=== PATIENT | female | born 1940 | race Caucasian/White ===

== ENCOUNTER 2016-09-03 13:00 | Outpatient (RCR) | payer MEDICARE, OTHER ==
--- OUTSIDE RECORDS SUMMARY | 2016-06-15 12:53 | XMS REPORT | Continuity of Care Document ---
Author Author [facility] Organization [facility] Address Unknown Phone Unavailable Care Team Providers Care Print Controller Name Role Phone DANITA PALOMO MD PCP Insurance Providers Payer Name Policy Number Subscriber Name Relationship Wps Medicare [id number] Jennifer Jackson 19 Self / Same As Patient [employer] [id number] Jennifer Jackson 19 Self / Same As Patient Advance Directives Directive Response Recorded Date/Time Advance Directives Yes 08/29/07 3:49am Health Care Power of Quick Mixer Operator Salina JACKSON 08/29/07 3:49am Organ Donor Yes 08/29/07 3:49am Chief Complaint and Reason for Visit Chief Complaint Cough/Cold/Flu Symptoms Reason for Visit [id number] Problems Active Problems Medical Problem Onset Date Status COPD (chronic obstructive pulmonary disease) with acute bronchitis Unknown Acute Medications Current Home Medications Medication Dose Units Route Directions Days/Qty Instructions Start Date Metoprolol Succinate 100 Mg 08/29/07 Hydrochlorothiazide 12.5 Mg 08/29/07 Zafirlukast 20 Mg 08/29/07 Multivitamins 1 Ea 08/29/07 Salmeterol Xinafoate/Fluticasone 100 Mcg/50 Mcg 08/29/07 Albuterol/Ipratropium 14.7 Gm 08/29/07 Potassium Chloride 8 Meq 08/29/07 [Estratest] 08/29/07 [Magnesium] 08/29/07 [Luten] 08/29/07 [Aleve] 08/29/07 Methylprednisolone 4 Mg 4 Mg Oral As Directed 1 04/19/16 Doxycycline Monohydrate 100 Mg 100 Mg Oral Twice A Day 20 04/19/16 Social History Social History Problem Response Recorded Date/Time Recent Foreign Travel No 04/19/2016 5:17pm Recent Infectious Disease Exposure No 04/19/2016 5:17pm Hospitalization with Isolation Denies 04/19/2016 5:17pm Hospital Discharge Instructions No hospital discharge instructions. Plan of Care Discharge Date 04/19/16 6:44pm Disposition 01 HOME, SELF-CARE Condition at Discharge Stable Instructions/Education Provided Acute Bronchitis (ED) Prescriptions See Medication Section Referrals DANITA PALOMO MD - Primary Care Physician LORENZO CUNNINGHAM - Primary Care Physician ADAMARIS KELLER DO - Additional Instructions/Education ROBITUSSIN DM FOR COUGH LOTS OF CLEAR LIQUIDS USE YOUR COMBIVENT WITH SPACER EVERY 4 HOURS NEEDED FOR BREATHING FOLLOW UP WITH DR. PALOMO AND/OR DR. KELLER N 2-3 DAYS FOR FURTHER CARE All discharge instructions reviewed with patient and/or family. Voiced understanding. Functional Status No functional status results. Allergies, Adverse Reactions, Alerts Allergen Type Severity Reaction Status Last Updated Sulfa (Sulfonamide Antibiotics) ([id number]) Allergy Unknown Active 29/03 Aspirin Allergy Unknown Active 08/29/07 cephaeline Allergy Mild Active 04/19/16 Ampicillin Allergy Unknown Active 08/29/07 hydrogen peroxide ([id number]) Allergy Unknown Active 08/29/07 gentamicin ([id number]) Allergy Unknown Active 08/29/07 turmeric ([id number]) Allergy Mild Active 04/19/16 moxifloxacin ([id number]) Allergy Unknown Active 08/29/07 PAUD'ARCO Allergy Unknown Active 04/19/16 Immunizations No immunization records. Vital Signs Acute Vital Signs Vital Response Date/Time Temperature (Fahrenheit) 97.9 degrees F (97.6 - 99.5) 04/19/2016 5:17pm Temperature (Calculated Celsius) 36.34641 degrees C (36.4 - 37.5) 04/19/2016 5:17pm Temperature Source Temporal 04/19/2016 5:17pm Pulse Rate (adult) 63 bpm (60 - 90) 04/19/2016 5:17pm Respiratory Rate 20 bpm (12 - 24) 04/19/2016 5:17pm O2 Sat by Pulse Oximetry 96 % (88 - 100) 04/19/2016 6:12pm Blood Pressure 153/58 mm Hg 04/19/2016 5:17pm Blood Pressure Mean 89 mm Hg 04/19/2016 5:17pm Pain Numeric Pain Scale 3 04/19/2016 5:17pm Height (Feet) 5 feet 04/19/2016 5:17pm Height (Inches) 7 inches 04/19/2016 5:17pm Height (Calculated Centimeters) 170.663645 cm 04/19/2016 5:17pm Weight (Pounds) 235 pounds 04/19/2016 5:17pm Weight (Calculated Kilograms) 106.690343 kilograms 04/19/2016 5:17pm Capillary Refill Capillary Refill Less Than 3 Seconds 04/19/2016 5:17pm Height 5 ft 7 in Weight 235 lb Body Mass Index 36.8 kg/m^2 Results Laboratory Results Test Name Result Units Flags Reference Collection Date/Time Result Date/ Time Comments White Blood Count 9.2 10^3/uL 4.3-11.0 04/19/2016 5:39pm 04/19/2016 5: 51pm Red Blood Count 4.42 10^6/uL 4.35-5.85 04/19/2016 5:39pm 04/19/2016 5: 51pm Hemoglobin 13.6 G/DL 11.5-16.0 04/19/2016 5:39pm 04/19/2016 5:51pm Hematocrit 41 % 35-52 04/19/2016 5:39pm 04/19/2016 5:51pm Mean Corpuscular Volume 93 FL 80-99 04/19/2016 5:39pm 04/19/2016 5: 51pm Mean Corpuscular Hemoglobin 31 PG 25-34 04/19/2016 5:39pm 04/19/2016 5: 51pm Mean Corpuscular Hemoglobin Concent 33 G/DL 32-36 04/19/2016 5:39pm 03/2016 5:51pm Red Cell Distribution Width 13.4 % 10.0-14.5 04/19/2016 5:39pm 2015 5:51pm Platelet Count 281 10^3/uL 130-400 04/19/2016 5:39pm 04/19/2016 5:51pm Mean Platelet Volume 10.2 FL 7.4-10.4 04/19/2016 5:39pm 04/19/2016 5: 51pm Neutrophils (%) (Auto) 66 % 42-75 04/19/2016 5:39pm 04/19/2016 5:51pm Lymphocytes (%) (Auto) 18 % 12-44 04/19/2016 5:39pm 04/19/2016 5:51pm Monocytes (%) (Auto) 13 % H 0-12 04/19/2016 5:39pm 04/19/2016 5:51pm Eosinophils (%) (Auto) 2 % 0-10 04/19/2016 5:39pm 04/19/2016 5:51pm Basophils (%) (Auto) 0 % 0-10 04/19/2016 5:39pm 04/19/2016 5:51pm Neutrophils # (Auto) 6.1 X 10^3 1.8-7.8 04/19/2016 5:39pm 04/19/2016 5: 51pm Lymphocytes # (Auto) 1.7 X 10^3 1.0-4.0 04/19/2016 5:39pm 04/19/2016 5: 51pm Monocytes # (Auto) 1.2 X 10^3 H 0.0-1.0 04/19/2016 5:39pm 04/19/2016 5: 51pm Eosinophils # (Auto) 0.2 10^3/uL 0.0-0.3 04/19/2016 5:39pm 04/19/2016 5 :51pm Basophils # (Auto) 0.0 10^3/uL 0.0-0.1 04/19/2016 5:39pm 04/19/2016 5: 51pm Sodium Level 134 MMOL/L L 135-145 04/19/2016 5:39pm 04/19/2016 6:09pm Potassium Level 4.7 MMOL/L 3.6-5.0 04/19/2016 5:39pm 04/19/2016 6:09pm Chloride Level 98 MMOL/L 98-107 04/19/2016 5:39pm 04/19/2016 6:09pm Carbon Dioxide Level 27 MMOL/L 21-32 04/19/2016 5:39pm 04/19/2016 6: 09pm Anion Gap 9 MMOL/L 5-14 04/19/2016 5:39pm 04/19/2016 6:09pm Blood Urea Nitrogen 21 MG/DL H 7-18 04/19/2016 5:39pm 04/19/2016 6:09pm Creatinine 1.41 MG/DL H 0.60-1.30 04/19/2016 5:39pm 04/19/2016 6:09pm BUN/Creatinine Ratio 15 04/19/2016 5:39pm 04/19/2016 6:09pm Estimat Glomerular Filtration Rate 36 04/19/2016 5:39pm 04/19/2016 6:09pm GFR INTERPRETIVE DATA UNITS FOR ESTIMATED GFR (eGFR): mL/min/1.73 M2 REFERENCE RANGE FOR ESTIMATED GFR (eGFR) eGFR NORMAL eGFR >60 MODERATELY DECREASED eGFR 30-59 SEVERLY DECREASED eGFR 15-29 KIDNEY FAILURE <15 (OR DIALYSIS) Glucose Level 104 MG/DL 70-105 04/19/2016 5:39pm 04/19/2016 6:09pm Calcium Level 10.0 MG/DL 8.5-10.1 04/19/2016 5:39pm 04/19/2016 6:09pm Total Bilirubin 0.4 MG/DL 0.1-1.0 04/19/2016 5:39pm 04/19/2016 6:09pm Alkaline Phosphatase 50 U/L 40-136 04/19/2016 5:39pm 04/19/2016 6:09pm Aspartate Amino Transf (AST/SGOT) 21 U/L 5-34 04/19/2016 5:39pm 2015 6:09pm Alanine Aminotransferase (ALT/SGPT) 21 U/L 0-55 04/19/2016 5:39pm 04/19 6:09pm Total Protein 7.0 G/DL 6.4-8.2 04/19/2016 5:39pm 04/19/2016 6:09pm Albumin 4.3 G/DL 3.2-4.5 04/19/2016 5:39pm 04/19/2016 6:09pm Procedures No known history of procedures. Encounters Encounter Location Arrival/Admit Date Discharge/Depart Date Attending Provider Departed Emergency Room [facility] 04/19/16 4:41pm 04/19 6:44pm GEMMA SILVEIRA DO Recent Diagnosis
[~2016-09-03 13:00] MED LIST: ALEVE; ASPI-983 PO; ASPI-999 PO; CALC-706 PO; CETI10TA20 PO; CLOP75TA69 PO; CMBV14.7IN; CYCL1DRO OU; DOXY100C42 PO; ESTRATEST; ESTRATEST HS PO; FENO145T20 PO; FLUT1DIS28 IH; FURO20TA4 PO; GLIP2.5T15 PO; HCTZ12.5T; HYDR-3812 PO; KCL10CCR; LOSA50TA36 PO; LUTEN; MAGNESIUM; METH4TAB PO; MONT10TA21 PO; MTP100TCR; MULT1TAB63; MULT1TAB69 PO; NFNEB10T PO; OMEG-109 PO; PANT40TA3 PO; POTA8CAP14; POTA8TAB6 PO; SLMFT1E; SODI15DR7 OD; ZFR20T; [UNRECOGNIZED DRUG - OTHER] INH
[2016-09-07] MEDS ORDERED: PRD20T PO (11:36)
[2016-09-07] MEDS ORDERED: RT-ALBUINH IH (12:44)
== END 2016-09-13 | disposition home or self-care (01) ==
LOC: PULM 13:00
PROVIDERS: ATTEND Nurse Practitioner Family
DX: J43.9 Emphysema, unspecified (principal); R06.09 Other forms of dyspnea; R06.02 Shortness of breath
CPT/HCPCS: 99211

== ENCOUNTER → 2016-10-12 | Outpatient (CLI) | payer MEDICARE, OTHER ==
[~2016-10-12] MED LIST changes: +PRD20T PO; +RT-ALBUINH IH
--- OUTSIDE RECORDS SUMMARY | 2016-10-12 11:27 | XMS REPORT | Continuity of Care Document ---
Author Author [facility] Organization [facility] Address Unknown Phone Unavailable Care Team Providers Care Stone Engraver Name Role Phone DANITA PALOMO MD PCP Insurance Providers Payer Name Policy Number Subscriber Name Relationship Wps Medicare [id number] Jennifer Jackson 19 Self / Same As Patient [employer] [id number] Jennifer Jackson 19 Self / Same As Patient Advance Directives Directive Response Recorded Date/Time Advance Directives Yes 08/29/07 3:49am Health Care Power of Hvac Designer Salina JACKSON 08/29/07 3:49am Organ Donor Yes 08/29/07 3:49am Chief Complaint and Reason for Visit Chief Complaint Cough/Cold/Flu Symptoms Reason for Visit [id number] Problems Active Problems Medical Problem Onset Date [...] Reaction Status Last Updated Sulfa (Sulfonamide Antibiotics) ([id number]) Allergy Unknown Active 29/03 Aspirin Allergy Unknown Active 08/29/07 cephaeline Allergy Mild Active 04/19/16 Ampicillin Allergy Unknown Active 08/29/07 hydrogen peroxide (Z978889809) Allergy Unknown Active 08/29/07 gentamicin ([id number]) Allergy Unknown Active 08/29/07 turmeric (X952477582) Allergy Mild Active 04/19/16 moxifloxacin ([id number]) Allergy Unknown Active 08/29/07 PAUD'ARCO Allergy Unknown Active 04/19/16 Immunizations No immunization records. Vital Signs Acute Vital Signs Vital Response Date/Time Temperature (Fahrenheit) 97.9 degrees F (97.6 - 99.5) 04/19/2016 5:17pm Temperature (Calculated Celsius) 36.18232 degrees C (36.4 - 37.5) 04/19/2016 5:17pm [...] 7 inches 04/19/2016 5:17pm Height (Calculated Centimeters) 170.338827 cm 04/19/2016 5:17pm Weight (Pounds) 235 pounds 04/19/2016 5:17pm Weight (Calculated Kilograms) 106.298989 kilograms 04/19/2016 5:17pm Capillary Refill Capillary Refill [...] Date Attending Provider Departed Emergency Room [facility] 04/19/16 4:41pm 04/19 6:44pm GEMMA SILVEIRA DO Recent Diagnosis
--- NOTE | 2016-10-12 13:38 | Diagnostic Imaging Report ---
CHEST PA/LAT (2 VIEW) INDICATION: Shortness of breath and cough. COMPARISON: 09/07/2016 and 07/09/2010. FINDINGS: No focal pneumonic consolidation, pleural effusion or pneumothorax. Linear atelectasis within the left mid and lower lung zone is unchanged since prior examinations, compatible with scar. Increased densities overlying the anterior aspect of the lower thoracic spine on the lateral radiograph have not significantly changed since 2010 examination and are likely due to summation shadow of degenerative change and normal pulmonary vasculature. Normal heart size and pulmonary vasculature. IMPRESSION: No acute cardiopulmonary process. Dictated by: Dictated on workstation # [id number]
== END ==
LOC: RAD 11:24
PROVIDERS: ATTEND Nurse Practitioner Family
DX: R06.02 Shortness of breath (principal)
CPT/HCPCS: 71020

== ENCOUNTER 2016-11-12 13:00 | Outpatient (RCR) | payer MEDICARE, OTHER ==
--- OUTSIDE RECORDS SUMMARY | 2016-09-24 13:24 | XMS REPORT | Continuity of Care Document ---
Author Author [facility] Organization [facility] Address Unknown Phone Unavailable Care Team Providers Care Replanting Machine Crew Name Role Phone DANITA PALOMO MD PCP Insurance Providers Payer Name Policy Number Subscriber Name Relationship Wps Medicare [id number] Jennifer Jackson 19 Self / Same As Patient [employer] [id number] Jennifer Jackson 19 Self / Same As Patient Advance Directives Directive Response Recorded Date/Time Advance Directives Yes 08/29/07 3:49am Health Care Power of Analytic Programmer Salina JACKSON 08/29/07 3:49am Organ Donor Yes 08/29/07 3:49am Chief Complaint and Reason for Visit Chief Complaint Cough/Cold/Flu Symptoms Reason for Visit [id number] Problems Active Problems Medical Problem Onset Date [...] Reaction Status Last Updated Sulfa (Sulfonamide Antibiotics) ([id number]) Allergy Unknown Active 29/03 Aspirin Allergy Unknown Active 08/29/07 cephaeline Allergy Mild Active 04/19/16 Ampicillin Allergy Unknown Active 08/29/07 hydrogen peroxide ([id number]) Allergy Unknown Active 08/29/07 gentamicin ([id number]) Allergy Unknown Active 08/29/07 turmeric ([id number]) Allergy Mild Active 04/19/16 moxifloxacin ([id number]) Allergy Unknown Active 08/29/07 PAUD'ARCO Allergy Unknown Active 04/19/16 Immunizations No immunization records. Vital Signs Acute Vital Signs Vital Response Date/Time Temperature (Fahrenheit) 97.9 degrees F (97.6 - 99.5) 04/19/2016 5:17pm Temperature (Calculated Celsius) 36.52455 degrees C (36.4 - 37.5) 04/19/2016 5:17pm [...] 7 inches 04/19/2016 5:17pm Height (Calculated Centimeters) 170.432174 cm 04/19/2016 5:17pm Weight (Pounds) 235 pounds 04/19/2016 5:17pm Weight (Calculated Kilograms) 106.781168 kilograms 04/19/2016 5:17pm Capillary Refill Capillary Refill [...] Date Attending Provider Departed Emergency Room [facility] 04/19/16 4:41pm 04/19 6:44pm GEMMA SILVEIRA DO Recent Diagnosis
== END 2016-12-23 | disposition home or self-care (01) ==
LOC: PULM 13:00
PROVIDERS: ATTEND Nurse Practitioner Family
DX: J43.9 Emphysema, unspecified (principal); R06.09 Other forms of dyspnea; R06.02 Shortness of breath

== ENCOUNTER → 2017-03-18 | Outpatient (CLI) | payer MEDICARE, OTHER ==
--- NOTE | 2017-03-18 14:51 | Diagnostic Imaging Report ---
PA and lateral views of the chest. INDICATION: Shortness of breath and COPD. COMPARISON: 10/12/2016. FINDINGS: The lungs demonstrate minimal atelectasis or scarring in the mid lateral left lung. No significant focal infiltrate is seen otherwise. No effusion or pneumothorax. The heart size is borderline enlarged. IMPRESSION: Borderline cardiomegaly. Dictated by: Dictated on workstation # [id number]
== END ==
LOC: RAD 09:24
PROVIDERS: ATTEND Nurse Practitioner Family
DX: J45.909 Unspecified asthma, uncomplicated (principal); J43.8 Other emphysema; R06.02 Shortness of breath
CPT/HCPCS: 71020

== ENCOUNTER → 2017-04-13 | Outpatient (CLI) | payer MEDICARE, OTHER ==
--- NOTE | 2017-04-13 17:22 | Diagnostic Imaging Report ---
PROCEDURE: US Thyroid. TECHNIQUE: Multiple real-time grayscale images were obtained of the thyroid in various projections. INDICATION: Multinodular goiter. FINDINGS: The right thyroid lobe is 5 x 2.1 x 1.8 cm. The left lobe is 4.6 x 1.7 x 1.4 cm. In the right lobe, there are complex nodules measuring 1.4 and 1.3 cm in size. These demonstrate small cystic components. No significant internal vascularity is seen. When compared to previous exam of 03/09/2016, these nodules appear slightly larger. In the left lobe, the largest solid-appearing nodule is 0.9 cm in the lower thyroid pole. There is however no internal vascularity seen on color Doppler. IMPRESSION: There are multiple bilateral thyroid nodules with possible solid components more prominent on the right side up to 1.4 from cm in size. This is slightly increased compared to the prior exam. The findings are likely related to multinodular goiter. Dictated by: Dictated on workstation # [id number]
== END ==
LOC: RAD 13:46
PROVIDERS: ATTEND Nurse Practitioner Family
DX: E04.2 Nontoxic multinodular goiter (principal)
CPT/HCPCS: 76536

== ENCOUNTER 2017-04-23 05:36 | Outpatient (CLI) | payer MEDICARE, OTHER ==
[~2017-04-23] VITALS: Ht 167.6 cm; Wt 99.8 kg
[2017-04-23] MEDS ORDERED: FLUT1AER IH (09:56)
[2017-04-23] MEDS ORDERED: IPRA4AER IH (09:56)
[2017-04-23] MEDS ORDERED: GEMF600T3 PO (09:56)
[2017-04-23] MEDS ORDERED: ASPI-586 PO (09:56)
[2017-04-23] MEDS ORDERED: UMEC62.5 IH (09:56)
[2017-04-23] MEDS ORDERED: GUAI600T43 PO (09:56)
== END 2017-04-23 10:33 ==
LOC: PREOP 05:36
PROVIDERS: ATTEND Surgery
DX: Z01.818 Encounter for other preprocedural examination (principal); Z12.11 Encounter for screening for malignant neoplasm of colon

== ENCOUNTER 2017-05-03 09:59 | Day surgery (SDC) | payer MEDICARE, OTHER ==
[~2017-05-03] VITALS: Ht 167.6 cm; Wt 99.8 kg
[~2017-05-03 09:59] MED LIST changes: +ASPI-586 PO; +FLUT1AER IH; +GEMF600T3 PO; +GUAI600T43 PO; +IPRA4AER IH; +UMEC62.5 IH
[2017-05-03] MEDS ORDERED: NS IV 500 ML 500 ML ONE (10:10)
[2017-05-03 10:25] VITALS: BP 131/60
[2017-05-03] MEDS ORDERED: NS IV 500 ML 500 ML IV ONE (10:30)
--- NOTE | 2017-05-03 13:18 | History & Physicial ---
History of Present Illness History of Present Illness Reason for visit/HPI to undergo screening colonoscopy Date of Admission Date Seen by Provider: May 03, 2017 Time Seen by Provider: 13:17 I consulted on this patient on 05/03/17 13:17 Attending Physician Pravin Reynolds MD Admitting Physician Siri Del Castillo MD Consult Allergies and Home Medications Allergies Coded Allergies: cephaeline (Unverified Allergy, Mild, 04/19/16) turmeric (Unverified Allergy, Mild, 04/19/16) Sulfa (Sulfonamide Antibiotics) (Verified Allergy, Unknown, 08/29/07) ampicillin (Verified Allergy, Unknown, 08/29/07) aspirin (Verified Allergy, Unknown, 08/29/07) gentamicin (Verified Allergy, Unknown, 08/29/07) hydrogen peroxide (Verified Allergy, Unknown, 08/29/07) moxifloxacin (Verified Allergy, Unknown, 08/29/07) Uncoded Allergies: PAUD'ARCO (Allergy, Unknown, 04/19/16) Home Medications Albuterol/Ipratropium 4 Gm Aero, 2 PUFF IH Q4H PRN for SHORTNESS OF BREATH, ( Reported) Aspirin 81 Mg Tablet.dr, 81 MG PO DAILY, (Reported) Calcium Carbonate/Mag Oxide/Zn 1 Each Tablet, 1 TAB PO BID, (Reported) Cetirizine HCl 10 Mg Tablet, 10 MG PO HS, (Reported) Clopidogrel Bisulfate 75 Mg Tablet, 75 MG PO Q48H, (Reported) Cyclosporine 1 Each Droperette, 1 DROP OU BID, (Reported) Fluticasone/Vilanterol 1 Each Blst.w.dev, 1 EACH IH HS, (Reported) Furosemide 20 Mg Tablet, 20 MG PO DAILY PRN for leg swelling, (Reported) Gemfibrozil 600 Mg Tablet, 600 MG PO BID, (Reported) Glipizide 2.5 Mg Tab.er.24, 2.5 MG PO DAILY, (Reported) Guaifenesin 600 Mg Tab.er.12h, 600 MG PO BID, (Reported) Hydrocodone/Acetaminophen 1 Each Tablet, 0.5 TAB PO BID, (Reported) Montelukast Sodium 10 Mg Tablet, 10 MG PO DAILY, (Reported) Multivitamin 1 Each Tablet, 1 TAB PO DAILY, (Reported) Nebivolol HCl 10 Mg Tab, 10 MG PO BID, (Reported) Odonnell-3 Fatty Acids/Fish Oil 1 Each Capsule, 1,200 MG PO BID, (Reported) Pantoprazole Sodium 40 Mg Tablet.dr, 40 MG PO HS, (Reported) Potassium Chloride 8 Meq Tablet.er, 8 MEQ PO HS, (Reported) Umeclidinium [place] 62.5 Mcg Blst.w.dev, 62.5 MCG IH DAILY, (Reported) Past Pgoxhdm-Ffbvnk-Mxkkvs Hx Patient Social History Employed/Student: retired Alcohol Use: Denies Use Recreational Drug Use: No Smoking Status: Former Smoker Former Smoker, Quit: Aug 18, 2006 Type Used: Cigarettes Recent Foreign Travel: No Contact w/other who traveled: No Recent Hopitalizations: No Recent Infectious Disease Expo: No Immunizations Up To Date Date of Pneumonia Vaccine: Oct 14, 2015 Date of Influenza Vaccine: Jul 20, 2016 Seasonal Allergies Seasonal Allergies: Yes Surgeries Eye Surgery, Hysterectomy Respiratory Currently Using CPAP: Yes Cardiovascular Hypertension Neurological Neuropathy Reproductive System Hx Reproductive Disorders: No 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 History: Hysterectomy Gastrointestinal Gastroesophageal Reflux Musculoskeletal Arthritis, Chronic Back Pain Constitutional: no symptoms reported EENTM: no symptoms reported Respiratory: no symptoms reported Cardiovascular: no symptoms reported Gastrointestinal: no symptoms reported Genitourinary: no symptoms reported Skin: no symptoms reported Psychiatric/Neurological: No Symptoms Reported Physical Exam Vital Signs Vital Sign - Last 12Hours 05/03/17 10:25 Temp 98.4 Pulse 56 Resp 18 B/P (MAP) 131/60 Pulse Ox 94 O2 Delivery Room Air Capillary Refill : General Appearance: No Apparent Distress HEENT: Normal ENT Inspection Neck: Normal Inspection Respiratory: Lungs Clear Cardiovascular: Regular Rate, Rhythm Gastrointestinal: Normal Bowel Sounds Rectal: Deferred Back: Normal Inspection Extremity: Normal Inspection Neurologic/Psychiatric: Alert, Oriented x3 Skin: Warm/Dry Assessment/Plan Assessment and Plan lady here to undergo screening colonoscopy. Discussed in detail. Problems: PRAVIN REYNOLDS MD May 03, 2017 1:18 pm
--- NOTE | 2017-05-03 13:18 | Conscious Sedation/ASA ---
Conscious Sedation Pre-Proced Time Reviewed: 13:18 ASA Class: 2 Airway Mallampati Classification: (solomon appropriate class) I. II. III, IV Lungs Heart ASA score ASA 1: a normal healthy patient ASA 2: a patient with a mild systemic disease (mid diabetes, controlled hypertension, obesity ASA 3: a patient with a severe systemic disease that limits activity (angina , COPD, prior Myocardial infarction) ASA 4: a patient with an incapacitating disease that is a constant threat to life (CHF, renal failure) ASA 5: a moribund patient not expected to survive 24 hrs. (ruptured aneurysm) ASA 6: a declared brain patient whose organs are being harvested. For emergent operations, add the letter E after the classification Grade 1 Sedation Plan: Discussed options with patient/fam Note The patient is an appropriate candidate to undergo the planned procedure, sedation, and anesthesia. The patient immediately re-assessed prior to indication. PRAVIN HERMAN MD May 03, 2017 1:18 pm
[2017-05-03] MEDS ORDERED: MIDAZOLAM 2 MG/2 ML (VERSED) VIAL ONE (14:10)
[2017-05-03] MEDS ORDERED: fentaNYL INJECTION 100 MCG/2 ML AMP ONE ×2 (14:10)
[2017-05-03] MEDS: fentaNYL INJECTION 100 MCG/2 ML AMP IVP PRN ×3 (14:15→14:27)
[2017-05-03] MEDS: MIDAZOLAM 2 MG/2 ML (VERSED) VIAL IVP PRN ×2 (14:22→14:25)
--- NOTE | 2017-05-03 14:38 | Endo Procedure Record ---
Endo Procedure Report Date of Procedure May 03, 2017 Surgeon (s) PRAVIN HERMAN MD Post Procedure/Op Diagnosis normal colonoscopy Procedure Performed colonoscopy to cecum Description of Procedure Anesthesia Type: Conscious Sedation Specimen(s) collected/removed none Description of the Procedure indication for procedure: This lady came in for colonoscopy. She denied any family history of colon cancer. Informed consent was obtained after reviewing the procedure in detail. Description of procedure: She was placed in left lateral this position and her vital signs were monitored. Conscious sedation was achieved using Versed and fentanyl. Digital rectal examination was unremarkable. The colonoscope was then introduced in the rectum and advanced all the way up to cecum. The quality of bowel preparation was excellent. The scope was gently withdrawn slowly and the mucosa examined in a systematic fashion. There was no abnormality She tolerated the procedure well and was taken back to the nursing area in a stable condition. Impression normal screening colonoscopy. No relevant family history. Recommend repeating in 10 years. Copies To: DANITA PALOMO MD, XAVIER M MD May 03, 2017 2:38 pm
--- NOTE | 2017-05-03 14:40 | Discharge Inst-Simple/Standard ---
Discharge Inst-Standard Discharge Medications New, Converted or Re-Newed RX: Other Patient Instructions/Follow Up Plan of Care/Instructions/FU: repeat colonoscopy in 10 years. Follow-up with my office on at 930, to discuss thyroid nodules Activity as Tolerated: Yes Discharge Diet: No Restrictions PRAVIN HERMAN MD May 03, 2017 2:40 pm
[2017-05-03 15:00] VITALS: BP 145/51
[2017-05-03 15:30] VITALS: BP 169/73
[2017-05-03 15:50] VITALS: BP 169/73
== END 2017-05-03 15:50 | disposition home or self-care (01) ==
LOC: ENDO 09:59
PROVIDERS: ATTEND Surgery
DX: Z12.11 Encounter for screening for malignant neoplasm of colon (principal); I10 Essential (primary) hypertension; Z87.891 Personal history of nicotine dependence; Z79.899 Other long term (current) drug therapy

== ENCOUNTER → 2017-05-12 | Outpatient (CLI) | payer MEDICARE, OTHER ==
--- NOTE | 2017-05-12 22:15 | Diagnostic Imaging Report ---
EXAMINATION: CT chest for lung cancer screening INDICATION: Lung cancer screening, 84-[id number]-dmuj smoking history Routine imaging of the thorax using the low-dose CT chest lung cancer screening protocol was utilized. There are no prior CT chest examinations available for comparison. The plain film examination of the chest performed on 03/18/17 showed no sign of an acute abnormality. There is a 4.6 CM noncalcified nodule in the right lung base periphery (image [id number]). There is also a 3.5 MM nodule in the periphery of the right upper lobe (image 48 of 238). In the periphery of the left upper lung, there is a 4.4 MM noncalcified nodule (image 106 of 238). There is another nodule measuring 4.4 MM in the left lung base (image 176 of 238). There are no other parenchymal nodules identified. There is a small 5 MM calcified granuloma in the left upper lung. There are coarse interstitial densities in both lower lobes. These are felt to be secondary to scar formation and/or chronic atelectasis. There is no sign of failure, pneumonia or pleural effusion to suggest an acute abnormality. The heart is borderline enlarged and there are coronary artery calcifications evident. The aorta is not abnormally dilated. There is no obvious mediastinal or hilar adenopathy. The thyroid gland is generally unremarkable. There is no obvious breast mass visualized. According to our records the patient has not had a mammogram within the last year. If the patient has had a mammogram elsewhere within the last year, then no additional imaging would be recommended. If the patient has not had a recent mammogram, then mammography would be recommended. The bone windows show no sign of a fracture or of a destructive lesion. The sections through the upper abdomen failed to show any evidence for an acute abnormality. IMPRESSION: 1. There are small nodules in both lungs. These nodules do not have an aggressive appearance but I would recommend that the patient have a followup low dose CT chest for cancer screening study in one year for continued evaluation. 2. There are chronic pulmonary changes evident but there is no sign of an acute cardiopulmonary abnormality. 3. There is borderline cardiomegaly and coronary artery disease. 4. There is no obvious breast mass. Recommendations as above. Lung RADS Category 1 Dictated by: Dictated on workstation # [id number]
== END ==
LOC: RAD 12:18
PROVIDERS: ATTEND Internal Medicine Critical Care Medicine
DX: R91.8 Other nonspecific abnormal finding of lung field (principal); I25.10 Atherosclerotic heart disease of native coronary artery without angina pectoris; Z87.891 Personal history of nicotine dependence

== ENCOUNTER → 2017-05-25 | Outpatient (CLI) | payer MEDICARE, OTHER ==
[~2017-05-25] VITALS: Ht 167.6 cm; Wt 99.8 kg
[~2017-05-25] MED LIST changes: +LIDOCAINE 1% INJ 20 ML (XYLOCAINE) VIAL INJ ONE
[2017-05-25 12:58] VITALS: BP 132/80
[2017-05-25 13:33] VITALS: BP 128/78
--- NOTE | 2017-05-25 14:05 | Diagnostic Imaging Report ---
EXAMINATION: US-guided core biopsy-thyroid. INDICATION: Right thyroid nodule. Current history and physical and other medical records are reviewed prior to the procedure. CONSENT: Informed consent was obtained from the patient. The risks, benefits, potential complications and alternatives were reviewed and all questions answered to the patient's satisfaction. The patient's vital signs, cardiac rhythm, and pulse oximetry with observed throughout the procedure by qualified nursing personnel. Sedation/medications: none. FINDINGS: Right thyroid nodules. PROCEDURE: After maximal sterile barrier technique preparation and draping, 1% lidocaine was utilized for local anesthesia. With the patient in supine position, and via anterior approach, a 19-gauge guide needle is introduced into the right thyroid nodule under live ultrasound guidance. After confirming adequate positioning with saved ultrasound images, multiple 20 gauge core biopsy specimens were obtained. The patient tolerated the procedure well with no immediate complications. IMPRESSION: Successful US-guided core biopsy of right thyroid nodule. Dictated by: Dictated on workstation # [id number]
== END ==
LOC: RAD 12:24
PROVIDERS: ATTEND Surgery
DX: E04.1 Nontoxic single thyroid nodule (principal)
CPT/HCPCS: 76942

== ENCOUNTER → 2018-03-14 | Outpatient (CLI) | payer MEDICARE, OTHER ==
[~2018-03-14] MED LIST changes: +ACHD5005 PO; -FENO145T20 PO; +FENO145T37 PO; -GEMF600T3 PO; +GEMF600T4 PO; -HYDR-3812 PO; -LIDOCAINE 1% INJ 20 ML (XYLOCAINE) VIAL INJ ONE; +RT-ALBUTEROL SULF 2.5 MG/3 ML PRE-MIX VIAL INH ONE
--- NOTE | 2018-03-14 14:38 | Diagnostic Imaging Report ---
PROCEDURE: CT chest without contrast. TECHNIQUE: Multiple contiguous axial images were obtained through the chest without the use of intravenous contrast. INDICATION: Followup lung nodules. COMPARISON: Comparison is made with prior CT chest from 05/12/2017. FINDINGS: No axillary lymphadenopathy is seen. No hilar or mediastinal lymphadenopathy is seen. There are coronary arterial calcifications present. Trace pericardial fluid is present. No pleural fluid is identified. 4 mm nodule in the right upper lobe, image 15, is stable. A tiny nodule posterolaterally in the right upper lobe, image 21, is stable at 2 mm. There is a stable 3 mm nodule in the right upper lobe, image 25. 5 mm nodule in the superior segment of the right lower lobe, image 36, is stable. More posteriorly in the right lower lobe, there is a stable 5 mm nodule. 3 mm left upper lobe nodule, image 27, is stable. There is calcified granuloma in the left upper lobe as well, unchanged. Tiny subpleural nodule in the posterolateral left lower lobe, image 35, is stable at 3 mm. More inferiorly, there is a similar nodule posterolaterally on image 44 which appears stable. Linear areas of scarring or atelectasis are noted. The upper abdomen is unremarkable. IMPRESSION: Stable bilateral pulmonary nodules when compared with prior CT from 05/12/2017. Additional followup in one year could be performed to confirm stability. Dictated by: Dictated on workstation # [id number]
== END ==
LOC: RT 12:48
PROVIDERS: ATTEND Internal Medicine Critical Care Medicine
DX: R91.8 Other nonspecific abnormal finding of lung field (principal); J44.9 Chronic obstructive pulmonary disease, unspecified
CPT/HCPCS: 71250; 94060

== ENCOUNTER → 2019-02-07 | Outpatient (CLI) | payer MEDICARE, OTHER ==
[~2019-02-07] MED LIST changes: -GEMF600T4 PO; +GEMF600T8 PO; -LOSA50TA36 PO; +LOSA50TA63 PO; -RT-ALBUTEROL SULF 2.5 MG/3 ML PRE-MIX VIAL INH ONE
--- NOTE | 2019-02-07 18:05 | Diagnostic Imaging Report ---
INDICATION: Long-term pain in right foot. TECHNIQUE: 3 views of the right foot. CORRELATION STUDY: None. FINDINGS: Rather significant pes planus alignment. Alignment is otherwise relatively anatomic. Joint spaces overall are fairly well maintained. Toes are held in partial flexure, limiting their assessment. Irregularity with spur-like formation at the talonavicular joint. The subtalar joints also appear to be somewhat distorted. There is presence of a prominent plantar calcaneal spur, 7 mm in size. Soft tissues appearing unremarkable. IMPRESSION: 1. Negative for acute findings of the foot. There is rather prominent pes planus alignment with resultant distortion of the subtalar joints as well as talonavicular joint. 2. Prominent plantar calcaneal spur. Dictated on workstation # [id number]
== END ==
LOC: RAD 14:26
PROVIDERS: ATTEND Nurse Practitioner Family
DX: M77.31 Calcaneal spur, right foot (principal); M21.41 Flat foot [pes planus] (acquired), right foot; M25.871 Other specified joint disorders, right ankle and foot
CPT/HCPCS: 73630

== ENCOUNTER → 2019-03-15 | Outpatient (CLI) | payer MEDICARE, OTHER ==
--- NOTE | 2019-03-15 14:31 | Diagnostic Imaging Report ---
EXAMINATION: CT chest without contrast (screening). HISTORY: Lung screening. TECHNIQUE: Low dose computed axial tomographic images of the chest were obtained without contrast for the purposes of lung screening. COMPARISON: 03/14/2018. FINDINGS: There are two unchanged nodules in the right lower lobe measuring 4 and 5 mm. There are multiple 3 mm and smaller nodules in the right upper lobe, unchanged from the prior exam. There is a calcified nodule seen in the left lung. No new or enlarging nodules are seen. There is scarring in the lung bases. No pleural effusion or pneumothorax. The heart is at the upper limits of normal for size. There are mild coronary artery calcifications. The aorta is normal in caliber. No axillary, supraclavicular, or mediastinal lymphadenopathy. Limited views of the upper abdomen are normal. There are no suspicious osseous lesions. IMPRESSION: LUNG-RADS CATEGORY: 2. Recommend continued annual screening. MODIFIERS: None. OTHER SIGNIFICANT FINDINGS: None. Dictated by: Dictated on workstation # [id number]
== END ==
LOC: RAD 13:48
PROVIDERS: ATTEND Internal Medicine Critical Care Medicine
DX: Z12.2 Encounter for screening for malignant neoplasm of respiratory organs (principal); J44.9 Chronic obstructive pulmonary disease, unspecified; Z87.891 Personal history of nicotine dependence

== ENCOUNTER 2019-12-06 14:23 | Outpatient (RCR) | payer MEDICARE, OTHER ==
[~2019-12-06 14:23] MED LIST changes: -CETI10TA20 PO; +CETI10TA21 PO; +FENO145T26 PO; -FENO145T37 PO
== END 2019-12-10 | disposition home or self-care (01) ==
PROVIDERS: ATTEND Podiatrist
DX: M25.571 Pain in right ankle and joints of right foot (principal); Z98.890 Other specified postprocedural states

== ENCOUNTER → 2020-03-11 | Outpatient (CLI) | payer MEDICARE, OTHER ==
[~2020-03-11] MED LIST changes: +MULT-567 PO; -MULT1TAB69 PO
== END ==
LOC: CARD 14:14
PROVIDERS: ATTEND Nurse Practitioner Family
DX: I25.10 Atherosclerotic heart disease of native coronary artery without angina pectoris (principal); I10 Essential (primary) hypertension
CPT/HCPCS: 93306

== ENCOUNTER → 2020-03-19 | Outpatient (CLI) | payer MEDICARE, OTHER ==
[~2020-03-19] VITALS: Ht 168 cm; Wt 95.0 kg
[~2020-03-19] MED LIST changes: +CATHETER FLUSH 10 ML SYR IV PRN; +REGADENOSON 0.4 MG/5 ML SYR (LEXISCAN) IV ONE
[2020-03-19 09:01] VITALS: BP 148/60
--- NOTE | 2020-03-19 14:08 | STRESS TEST ---
DATE OF SERVICE: 03/19/2020 RESTING AND POST REGADENOSON TECHNETIUM-99M TETROFOSMIN SPECT CT IMAGING ORDERING PHYSICIAN: Bre Cox APRN PRIMARY PHYSICIAN: Dr. Urban CLINICAL DIAGNOSES: Shortness of breath. Baseline images were carried out after injection of 10.62 mCi of technetium-99m Tetrofosmin. This was followed by 0.4 mg regadenoson and 30.6 mCi of technetium-99m Tetrofosmin for stress imaging. The electrocardiogram showed sinus rhythm with nonspecific intraventricular conduction delay and did not change significantly with Regadenoson i fusion. The patient had some shortness of breath and nausea following regadenoson infusion, which resolved in a few minutes. Review of images at rest and following stress does not indicate any distinct perfusion defects consistent with significant myocardial ischemia or infarction. Gated images show normal global left ventricular systolic function without regional wall motion abnormality. Left ventricular ejection fraction is calculated to be 81%. Left ventricular end diastolic volume is 56 mL. TID is absent (1.07). CONCLUSIONS: 1. No evidence of significant myocardial ischemia or infarction on this study. 2. Normal regional wall motion. 3. Normal global left ventricular systolic function. Left ventricular ejection fraction is calculated to be 81%. Job ID: [id number] DocumentID: [id number] Dictated Date: 03/19/2020 12:41:44 Manager Of Finance Date: 03/19/2020 14:06:52 Dictated By: SHOAIB MURRAY MD, MA, FACP, FACC,
== END ==
LOC: CARD 07:24
PROVIDERS: ATTEND Nurse Practitioner Family
DX: I25.10 Atherosclerotic heart disease of native coronary artery without angina pectoris (principal); I10 Essential (primary) hypertension
CPT/HCPCS: 78452; 93017; A9502

== ENCOUNTER → 2020-05-02 | Outpatient (CLI) | payer MEDICARE, OTHER ==
[~2020-05-02] MED LIST changes: -CATHETER FLUSH 10 ML SYR IV PRN; -REGADENOSON 0.4 MG/5 ML SYR (LEXISCAN) IV ONE
== END ==
LOC: CARD 07:43
PROVIDERS: ATTEND Nurse Practitioner Family
DX: I25.10 Atherosclerotic heart disease of native coronary artery without angina pectoris (principal); I65.29 Occlusion and stenosis of unspecified carotid artery; E78.5 Hyperlipidemia, unspecified
CPT/HCPCS: 93225; 93226

== ENCOUNTER 2020-08-07 13:36 | Outpatient (RCR) | payer MEDICARE, OTHER ==
[~2020-08-07 13:36] MED LIST changes: +ASPI-1238 PO; -ASPI-983 PO; -CETI10TA21 PO; +CETI10TA49 PO; -PANT40TA3 PO; +PANT40TA52 PO
== END 2020-08-07 14:40 | disposition home or self-care (01) ==
PROVIDERS: ATTEND Nurse Practitioner Family
DX: R53.1 Weakness (principal); R26.89 Other abnormalities of gait and mobility; Z98.890 Other specified postprocedural states; Z95.5 Presence of coronary angioplasty implant and graft

== ENCOUNTER 2020-09-16 11:20 | Emergency (ER) | payer MEDICARE, OTHER ==
[~2020-09-16] VITALS: Ht 167 cm; Wt 95.2 kg
--- NOTE | 2020-09-16 12:44 | ED Cough/URI ---
General Chief Complaint: Cough/Cold/Flu Symptoms Stated Complaint: DRAINAGE, SORE THROAT, COPD, SOB Nursing Triage Note: PT PRESENTS TO ED VIA POV FROM HOME WITH COMPLAINTS OF R EAR PAIN, NASAL DRAINAGE, SORE TROAT, AND INTERMITTENT FEVERS. PT REPORTS HER AND HER WERE TESTED LAST WEDNESDAY FOR COVID. PT REPORTS HER CAME BACK COVID POSITIVE AND HERS WAS NEGATIVE. Sepsis Screen: No Definite Risk Source: patient Exam Limitations: no limitations History of Present Illness Date Seen by Provider: Sep 16, 2020 Time Seen by Provider: 12:43 Initial Comments To ER with sore throat, right ear pain. She has some increased shortness of breath with a history of COPD but is not oxygen dependent. Her is Covid positive. Timing/Duration: getting worse Severity/Quality: moderate Associated Symptoms: cough, shortness of breath Allergies and Home Medications Allergies Coded Allergies: cephaeline (Unverified Allergy, Mild, 04/19/16) turmeric (Unverified Allergy, Mild, 04/19/16) Sulfa (Sulfonamide Antibiotics) (Verified Allergy, Unknown, 08/29/07) ampicillin (Verified Allergy, Unknown, 08/29/07) aspirin (Verified Allergy, Unknown, 08/29/07) gentamicin (Verified Allergy, Unknown, 08/29/07) hydrogen peroxide (Verified Allergy, Unknown, 08/29/07) moxifloxacin (Verified Allergy, Unknown, 08/29/07) Uncoded Allergies: PAUD'ARCO (Allergy, Unknown, 04/19/16) Home Medications Albuterol/Ipratropium 4 Gm Aero, 2 PUFF IH Q4H PRN for SHORTNESS OF BREATH, (Re ported) Aspirin 81 Mg Tablet.dr, 81 MG PO DAILY, (Reported) Calcium Carbonate/Mag Oxide/Zn 1 Each Tablet, 1 TAB PO BID, (Reported) Cetirizine HCl 10 Mg Tablet, 10 MG PO HS, (Reported) Clopidogrel Bisulfate 75 Mg Tablet, 75 MG PO Q48H, (Reported) Cyclosporine 1 Each Droperette, 1 DROP OU BID, (Reported) Fluticasone/Vilanterol 1 Each Blst.w.dev, 1 EACH IH HS, (Reported) Furosemide 20 Mg Tablet, 20 MG PO DAILY PRN for leg swelling, (Reported) Gemfibrozil 600 Mg Tablet, 600 MG PO BID, (Reported) Glipizide 2.5 Mg Tab.er.24, 2.5 MG PO DAILY, (Reported) Guaifenesin 600 Mg Tab.er.12h, 600 MG PO BID, (Reported) Hydrocodone Bit/Acetaminophen 1 Each Tablet, 0.5 TAB PO BID, (Reported) Montelukast Sodium 10 Mg Tablet, 10 MG PO DAILY, (Reported) Multivitamin 1 Each Tablet, 1 TAB PO DAILY, (Reported) Nebivolol HCl 10 Mg Tab, 10 MG PO BID, (Reported) [place]-3 Fatty Acids/Fish Oil 1 Each Capsule, 1,200 MG PO BID, (Reported) Pantoprazole Sodium 40 Mg Tablet.dr, 40 MG PO HS, (Reported) Potassium Chloride 8 Meq Tablet.er, 8 MEQ PO HS, (Reported) Umeclidinium Rhodelia 62.5 Mcg Blst.w.dev, 62.5 MCG IH DAILY, (Reported) Patient Home Medication List Home Medication List Reviewed: Yes Review of Systems Review of Systems Constitutional: see HPI EENTM: see HPI, ear pain Respiratory: see HPI, cough Cardiovascular: no symptoms reported Genitourinary: no symptoms reported Musculoskeletal: no symptoms reported Skin: no symptoms reported Psychiatric/Neurological: No Symptoms Reported Hematologic/Lymphatic: No Symptoms Reported Past Pfqzmay-Ffcmbz-Tfskvc Hx Patient Social History Alcohol Use: Denies Use Recreational Drug Use: No Smoking Status: Former Smoker Type Used: Cigarettes Former Smoker, Quit: Aug 18, 2006 Recent Foreign Travel: No Contact w/Someone Who Travel: No Recent Infectious Disease Expo: Yes Recent Hopitalizations: No Physical Abuse: No Sexual Abuse: No Mistreated: No Fear: No Immunizations Up To Date Date of Pneumonia Vaccine: Oct 14, 2015 Date of Influenza Vaccine: Jul 20, 2016 Seasonal Allergies Seasonal Allergies: Yes Past Medical History Surgeries: Yes (ANKLE, ant/post repair, r CTR, ) Eye Surgery, Hysterectomy Respiratory: Yes Asthma, Sleep Apnea, COPD, Emphysema Currently Using CPAP: Yes Cardiac: Yes (stent, ) Hypertension Neurological: Yes Neuropathy Reproductive Disorders: No 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 0.0oz. 99.773865rv; 34.00 BMI Method:Actual General Appearance: WD/WN, no apparent distress, other (94% on room air. Alert and oriented no distress) Eyes: Bilateral Eye Normal Inspection, Bilateral Eye PERRL HEENT: other (Left TM is erythematous, right TM is sclerotic) Neck: non-tender, full range of motion Respiratory: no respiratory distress, no accessory muscle use, crackles Cardiovascular: regular rate, rhythm, no murmur Neurologic/Psychiatric: alert, normal mood/affect, oriented x 3 Skin: normal color, warm/dry Progress/Results/Core Measures Suspected Sepsis Recent Fever Within 48 Hours: Yes Infection Criteria Present: Suspected New Infection New/Unexplained Altered Menta: No Sepsis Screen: No Definite Risk SIRS Temperature: Pulse: 62 Respiratory Rate: 18 Blood Pressure 162 /64 Mean: 96 Results/Orders Lab Results Laboratory Tests Test 09/16/20 12:38 Range/Units Coronavirus 2019 ([facility]) Negative Negative My Orders Orders - HOLGER ARBOLEDA APRN Covid 19 Inhouse Test (09/16/20 12:31) Chest 1 View, Ap/Pa Only (09/16/20 12:42) Vital Signs/I&O 09/16/20 12:34 Temp 36.7 Pulse 62 Resp 18 B/P (MAP) 162/64 (96) Pulse Ox 93 Capillary Refill : Less Than 3 Seconds Blood Pressure Mean: 96 Departure Impression Primary Impression: COPD (chronic obstructive pulmonary disease) with acute bronchitis Additional Impression: Otalgia of right ear Disposition: 01 HOME, SELF-CARE Condition: Stable Departure-Patient Inst. Decision time for Depature: 13:26 Referrals: DANITA PALOMO MD (PCP/Family) Primary Care Physician Patient Instructions: NO INSTRUCTIONS GIVEN Add. Discharge Instructions: Steroids and antibiotics as directed. Follow-up with your doctor next week. All discharge instructions reviewed with patient and/or family. Voiced understanding. Scripts Prednisone (Prednisone) 20 Mg Tab 40 MG PO DAILY, #8 TAB 0 Refills Prov: HOLGER ARBOLEDA APRN 09/16/20 Cefuroxime Axetil (Cefuroxime) 250 Mg Tablet 250 MG PO BID, #10 TAB Prov: HOLGER ARBOLEAD APRN 09/16/20 HOLGER ARBOLEDA APRN Sep 16, 2020 12:44
--- NOTE | 2020-09-16 13:24 | Diagnostic Imaging Report ---
INDICATION: Cough. TIME OF EXAM: 01:18 p.m. COMPARISON: Comparison is made to prior chest from 03/18/2017. FINDINGS: The heart size is normal. The pulmonary vascularity is unremarkable. The lungs are clear. No infiltrate, effusion or pneumothorax is detected. IMPRESSION: No acute cardiopulmonary process is detected. Dictated by: Dictated on workstation # [id number]
[2020-09-16] MEDS ORDERED: CEFU250T80 PO (13:27)
[2020-09-16] MEDS ORDERED: PRD20T PO (13:27)
[2020-09-16] MEDS ORDERED: AZIT250T12 PO (13:41)
[2020-09-16 13:43] VITALS: BP 132/74
== END 2020-09-16 13:43 | disposition home or self-care (01) ==
LOC: EDUNIT# 11:20 → ER 11:22
DX: J44.1 Chronic obstructive pulmonary disease with (acute) exacerbation (principal); H92.01 Otalgia, right ear; K21.9 Gastro-esophageal reflux disease without esophagitis; I10 Essential (primary) hypertension; G89.29 Other chronic pain; M54.9 Dorsalgia, unspecified; Z20.828 Contact with and (suspected) exposure to other viral communicable diseases; Z88.2 Allergy status to sulfonamides; Z88.1 Allergy status to other antibiotic agents; Z88.8 Allergy status to other drugs, medicaments and biological substances; Z87.891 Personal history of nicotine dependence; Z95.5 Presence of coronary angioplasty implant and graft; Z79.82 Long term (current) use of aspirin; Z79.891 Long term (current) use of opiate analgesic
CPT/HCPCS: 71045; 99282; U0002; 87635

== ENCOUNTER → 2020-11-06 | Outpatient (CLI) | payer MEDICARE, OTHER ==
[~2020-11-06] MED LIST changes: +AZIT250T12 PO; +CEFU250T80 PO; -GEMF600T8 PO; +GEMF600T88 PO
--- NOTE | 2020-11-06 15:11 | Diagnostic Imaging Report ---
PROCEDURE: US Thyroid. TECHNIQUE: Multiple real-time grayscale images were obtained of the thyroid in various projections. INDICATION: Thyroid nodule, follow-up. COMPARISON: Comparison is made with prior thyroid ultrasound from 04/13/2017. FINDINGS: Right lobe of thyroid measures 4.1 x 1.7 x 1.6 cm and left lobe measures 5.0 x 2.1 x 1.2 cm. Both lobes are markedly heterogeneous. There is a nodule in the lower pole of the right lobe which is primarily cystic with internal debris measuring approximately 12 mm in diameter. A cyst in the upper pole of the left lobe which is approximately 11 mm in size. Additional nodules measured on prior exam are not well seen on today's study and blend with the background heterogeneous parenchymal tissue. IMPRESSION: Heterogeneous thyroid with bilateral thyroid cysts, as described. No dominant thyroid mass is detected. Dictated by: Dictated on workstation # [id number]
--- NOTE | 2020-11-06 15:47 | Diagnostic Imaging Report ---
PROCEDURE: MR imaging of the brain without contrast. TECHNIQUE: Multiplanar, multisequence MR imaging of the brain was performed without contrast. INDICATION: Headaches. Pain and numbness at the top of the head. COMPARISON: None. FINDINGS: No acute ischemia, mass, or hemorrhage. The ventricles and cortical sulci are mildly prominent. The basilar cisterns are symmetric and unremarkable. The sellar and suprasellar regions have a normal appearance. The brainstem and posterior fossa are unremarkable. The paranasal sinuses and mastoid air cells demonstrate normal signal characteristics. Bilateral lens implants are noted. The globes and orbits are symmetric and unremarkable. The scalp and calvarium have a normal appearance. IMPRESSION: 1. No acute ischemia, mass, or hemorrhage. 2. Mild parenchymal volume loss. Dictated by: Dictated on workstation # [id number]
== END ==
LOC: RAD 13:20
PROVIDERS: ATTEND Nurse Practitioner Family
DX: E04.2 Nontoxic multinodular goiter (principal); G31.89 Other specified degenerative diseases of nervous system
CPT/HCPCS: 70551; 76536

== ENCOUNTER 2021-02-25 11:00 | Day surgery (SDC) | payer MEDICARE, OTHER ==
[~2021-02-25] VITALS: Ht 168 cm; Wt 98.0 kg
[2021-02-25] VITALS (9 sets, daily range): BP systolic 136–160; BP diastolic 52–68
[2021-02-25 08:36] LABS: HEMATOCRIT 42 % (35-52); HEMOGLOBIN 13.7 g/dL (11.5-16.0); MEAN CORPUSCULAR HEMOGLOBIN 31 pg (25-34); MEAN CORPUSCULAR HGB CONC 33 g/dL (32-36); MEAN CORPUSCULAR VOLUME 95 fL (80-99); MEAN PLATELET VOLUME 9.7 fL (9.0-12.2); PLATELET COUNT 292 10^3/uL (130-400); WHITE BLOOD COUNT 6.4 10^3/uL (4.3-11.0)
[2021-02-25 08:53] LABS: PROTHROMBIN TIME PATIENT 13.6 SEC (12.2-14.7)
[2021-02-25 09:02] LABS: ALBUMIN 4.5 GM/DL (3.2-4.5); BILIRUBIN,TOTAL 0.4 MG/DL (0.1-1.0); CREATININE SERUM 0.94 MG/DL (0.60-1.30); POTASSIUM 4.3 MMOL/L (3.6-5.0)
[~2021-02-25 11:00] MED LIST changes: +ACET600C PO; +ALB0.5V INH; +BIEST TOP; +CALC-64 PO; +CARB1DRO17 OU; +CETI10TA17 PO; +DULO30CA49 PO; +FORM20VI IH; +LATA2.5D19 OU; +METO50TA15 PO; +NITR0.4T39 SL; +NS IV 1000 ML 1,000 ML IV SCH; +OMEG-160 PO; +PROGESTERONE PO; +REVE175V IH; +VIT1CAPS44 PO; +[UNRECOGNIZED DRUG - OTHER] TOP
[2021-02-25] MEDS ORDERED: fentaNYL INJ 100 MCG/2 ML AMP ONE (11:23)
[2021-02-25] MEDS ORDERED: MIDAZOLAM 5 MG/5 ML (VERSED) VIAL ONE (11:24)
[2021-02-25] MEDS ORDERED: ADENOSINE 90 MG/30 ML (ADENOSCAN) VIAL IV ONE (12:12)
[2021-02-25] MEDS ORDERED: HEParin 1000 UNIT/ML (10ML VIAL) FOR BOLUS ONE (12:12)
--- NOTE | 2021-02-25 12:37 | Cardiac Procedure Note-CS/ASA ---
Pre-Procedure Note Pre-Op Procedure Note H&P Reviewed The H&P was reviewed, patient examined and no changes noted. Date H&P Reviewed: Feb 25, 2021 Time H&P Reviewed: 11:30 Conscious Sedation Pre-Proced Time 11:30 ASA Score 3 For ASA 3 and 4: Consider anesthesia and medical clearance. Also, for patients with a history of failed moderate sedation consider anesthesia. Airway Lungs Heart ASA score ASA 1: a normal healthy patient ASA 2: a patient with a mild systemic disease (mid diabetes, controlled hypertension, obesity ASA 3: a patient with a severe systemic disease that limits activity (angina, COPD, prior Myocardial infarction) ASA 4: a patient with an incapacitating disease that is a constant threat to life (CHF, renal failure) ASA 5: a moribund patient not expected to survive 24 hrs. (ruptured aneurysm) ASA 6: a declared brain- patient whose organs are being harvested. For emergent operations, add the letter E after the classification Mallampati Classification Grade 2 Sedation Plan Analgesia, Amnesia, Plan communicated to team members, Discussed options with patient/fam, Discussed risks with patient/fam The patient is an appropriate candidate to undergo the planned procedure, sedation, and anesthesia. The patient immediately re-assessed prior to indication. SHOAIB MURRAY MD FACP FAC CCDS Feb 25, 2021 12:37
--- NOTE | 2021-02-25 12:51 | Discharge Inst-Cardiology ---
Discharge Inst-Cardiac Discharge Medications Continued Medications: Acetylcysteine (Nac) 600 Mg Capsule 600 MG PO BID, CAP Albuterol Sulfate (Albuterol Sulfate) 2.5 Mg/0.5 Ml Vial.neb 2.5 MG INH Q4H PRN for SHORTNESS OF BREATH, EACH Albuterol Sulfate (Proair Hfa) 1 Puff Puff 2 PUFF IH Q4H PRN for SHORTNESS OF BREATH, PUFF Aspirin (Aspirin EC) 81 Mg Tablet.dr 81 MG PO 1700, TAB Azithromycin (Azithromycin) 250 Mg Tablet 250 MG PO DAILY, TAB [Biest(50/50)/T] () 0.5/0.5/1 CREAM.APPL 0.5 ML TOP DAILY, EA Calcium/Magnesium/Zinc (Rprlxte-Ckypmklfw-Jfie Tablet) 1 Each Tablet 1 EACH PO BID, TAB Carboxymethyl/Gly/Poly80/Pf (Refresh Optive Advanced Drops) 1 Each Droperette 1 EACH OU PRN PRN for DRY EYES, DROP Cetirizine HCl (Cetirizine HCl) 10 Mg Tablet 10 MG PO DAILY, TAB Clopidogrel Bisulfate (Plavix) 75 Mg Tablet 75 MG PO Q48H, TAB Duloxetine HCl (Duloxetine HCl) 30 Mg Capsule.dr 30 MG PO Q48H, CAP Formoterol Fumarate (Perforomist) 20 Mcg/2 Ml Vial.neb 20 MCG IH BID, INHALER Gemfibrozil (Gemfibrozil) 600 Mg Tablet 600 MG PO BID WITH MEALS, TAB Glipizide (Glipizide Xl) 2.5 Mg Tab.er.24 2.5 MG PO DAILY, TAB Hydrocodone/Acetaminophen (Hydrocodone-Acetamin 5-325 mg) 1 Each Tablet 0.5 EA PO BID PRN for PAIN-MODERATE (5-7), TAB Latanoprost (Xalatan) 2.5 Ml Drops 1 DROP OU DAILY, DROP Metoprolol Tartrate (Metoprolol Tartrate) 50 Mg Tablet 50 MG PO BID, TAB Montelukast Sodium (Singulair) 10 Mg Tablet 10 MG PO 1700, TAB Nitroglycerin (Nitroglycerin) 0.4 Mg Tab.subl 0.4 MG SL UD PRN for CHEST PAIN, TAB [place]-3/Dha/Epa/Fish Oil (Fish Oil 1,000 mg Softgel) 1 Each Capsule 2 EACH PO BID, CAP Pantoprazole Sodium (Pantoprazole Sodium) 40 Mg Tablet.dr 40 MG PO 1700, TAB [Progesterone] () 200 MINOR 50 MG PO MO,,,,FR,SA, EACH TAKES AT BEDTIME TAKES (200MG) MINOR Revefenacin (Yupelri) 175 Mcg/3 Ml Vial.neb 175 MCG IH 1200, INHALER Vit C/E/Zn/Coppr/Lutein/Zeaxan (Preservision Areds 2 Softgel) 1 Each Capsule 1 EACH PO BID, CAP SHOAIB MURRAY MD FACP FAC CCDS Feb 25, 2021 12:51
--- NOTE | 2021-02-25 12:52 | Discharge Inst-Post CATH ---
Discharge Inst-CATH/EP Post Cardiac Cath/EP D/C Inst Follow Up/Plan F/u at Dr Patton's next week ACTIVITY * Go Home directly and rest. * Limit activity of the leg (or wrist if it was used) for 7 days including aerobics, swimming, jogging, bicycling, etc. * Restrict stair-climbing for 7 days if possible, if not, climb up with your no n-cath leg, then bring together on the same step. * Avoid lifting, pushing, pulling or excessive movement of the affected ext remity for 7 days. * Customary sexual activity may be resumed after 2 days-use caution not to use a position that strains or causes pain to the affected extremity. * No driving for 24 hours. * NO SMOKING. * Avoid straining for bowel movements for 7 days. * Gentle walking on level ground is allowed. * Returning to work will depend on the type of procedure and the results. Your doctor will discuss this with you. CALL YOUR DOCTOR FOR ANY OF THE FOLLOWING: *If bleeding from the puncture site occurs- Apply gentle pressure to site with clean cloth and call your doctor or EMS. * If a knot or lump forms under the skin, increases in size, or causes pain. * If bruising appears to be worsening or moving further down your leg instead of disappearing. * Temperature above 101 F. CARE OF YOUR GROIN INCISION; * Bruising or purple discoloration of the skin near the puncture site is common. * You may shower only, no bathtub bathing for 5 days. Be careful to avoid slipping as your leg may feel stiff. * If a closure device was used on your femoral artery, please see the attached guide regarding care of the device and your leg. * Leave dressing on FOR 24 hours. CARE OF YOUR WRIST INCISION; * Bruising or purple discoloration of the skin near the puncture site is common. * You may shower. * DO NOT submerge wrist. * Leave dressing on FOR 24 hours. SHOAIB PATTON MD FACP FAC CCDS Feb 25, 2021 12:52
[2021-02-25] MEDS ORDERED: NS IV 1000 ML 1,000 ML IV SCH (13:00)
[2021-02-25] MEDS ORDERED: PATIENT MAY USE OWN MEDS, ALL PO SCH (13:00)
--- NOTE | 2021-02-25 15:04 | CARDIAC CATHETERIZATION ---
DATE OF SERVICE: 02/25/2021 CARDIAC CATHETERIZATION REPORT The patient is a 80-year-old lady who is known to have coronary artery disease and who has been experiencing increasing chest discomfort suggestive of crescendo angina. Cardiac catheterization was carried out today after having obtained informed consent. DESCRIPTION OF PROCEDURE: She was brought to the cardiac catheterization laboratory in a fasting state. Right groin was prepared and draped in the usual sterile fashion. Lidocaine 1% was used for local anesthesia. Modified Seldinger technique was used to advance a 5-Romanian sheath in right femoral artery. A 5-Romanian JL4 catheter was used for left coronary angiography, 5-Romanian JR4 catheter was used for right coronary angiography, 5-Romanian pigtail catheter was used for left heart catheterization. Left ventricular angiography was not performed. This was to conserve contrast because of the patient's known chronic kidney disease, stage II to III. Subsequently, fractional flow reserve measurement was carried out in the left circumflex artery and it is described below. FRACTIONAL FLOW RESERVE MEASUREMENT IN THE LEFT CIRCUMFLEX ARTERY: We used a 5-Romanian JL4 catheter to engage the left coronary artery. We advanced the pressure wire across the lesions in the left circumflex and the tip was placed in the distal vessel. We gave 140 mcg per kilogram per minute of adenosine over 2-1/2 minutes. Fractional flow reserve was 0.99, indicating that the lesion seen in the left circumflex artery was not hemodynamically significant. HEMODYNAMICS: Left ventricular end-diastolic pressure following coronary angiography was 18 mmHg. There is no significant pressure gradient on pullback across the aortic valve. LEFT VENTRICULAR ANGIOGRAPHY: Left ventricular angiography was not performed. CORONARY ANGIOGRAPHY: Coronary calcification is seen. Left main coronary artery does not exhibit significant disease. Left anterior descending artery has diffuse mild to moderate disease. Left circumflex artery had approximately 50% stenosis in its proximal and mid portions. Fractional flow reserve across the combination of these stenoses is 0.99, indicating that they are not hemodynamically significant. Right coronary artery is dominant and it shows a widely patent stented segment in its mid portion. There is mild diffuse disease of the distal and proximal right coronary artery. CONCLUSIONS: 1. Angiographically, mild to moderate coronary artery disease. There is a widely patent stent in the proximal right coronary artery known to be 2.75 x 32 that does not exhibit any stent restenosis and that was placed in 2006. The left circumflex artery has 50% mid vessel stenosis and fractional flow reserve across it is 0.99. 2. Mild elevation of left ventricular end-diastolic pressure. DISCUSSION AND RECOMMENDATIONS: Based on results of the study, it appears appropriate to continue a conservative approach. Risk factor modification has been reviewed. Current regimen is being continued. Outpatient followup is advised. Job ID: [id number] DocumentID: [id number] Dictated Date: 02/25/2021 12:46:17 Formal Wear Rental Clerk Date: 02/25/2021 15:03:42 Dictated By: SHOAIB MURRAY MD, MA, FACP, FACC, MTDD
== END 2021-02-25 16:30 | disposition home or self-care (01) ==
LOC: SDC 13:00 → CATH 16:30
PROVIDERS: ATTEND Internal Medicine Cardiovascular Disease
DX: I25.10 Atherosclerotic heart disease of native coronary artery without angina pectoris (principal); N18.30 Chronic kidney disease, stage 3 unspecified; Z79.82 Long term (current) use of aspirin; Z79.899 Other long term (current) drug therapy; Z79.02 Long term (current) use of antithrombotics/antiplatelets
CPT/HCPCS: 36430; 80053; 80061; 85027; 85610; 85730; 87081; 93458; 93571; C1760; C1894; 36415

== ENCOUNTER → 2021-05-07 | Outpatient (CLI) | payer MEDICARE, OTHER ==
[~2021-05-07] MED LIST changes: +DOXY-311 PO; -DOXY100C42 PO; -NS IV 1000 ML 1,000 ML IV SCH
--- NOTE | 2021-05-07 15:31 | Diagnostic Imaging Report ---
PROCEDURE: MR imaging of the brain without contrast. TECHNIQUE: Multiplanar, multisequence MR imaging of the brain was performed without contrast. INDICATION: Continuing headaches. COMPARISON: 11/06/2020. FINDINGS: No acute ischemia, mass, or hemorrhage. Small amount of T2 hyperintense signal is seen in the periventricular and subcortical white matter. The ventricles and cortical sulci are mildly prominent. The basilar cisterns are symmetric and unremarkable. The sellar and suprasellar regions have a normal appearance. The brainstem and posterior fossa are unremarkable. The paranasal sinuses and mastoid air cells demonstrate normal signal characteristics. The globes and orbits are symmetric and unremarkable. The scalp and calvarium have a normal appearance. IMPRESSION: 1. No acute ischemia, mass, or hemorrhage. 2. Mild parenchymal volume loss with small amount of scattered chronic microvascular disease. Overall, the appearance has not changed since the prior exam. Dictated by: Dictated on workstation # [id number]
== END ==
LOC: RAD 14:45
PROVIDERS: ATTEND Nurse Practitioner Family
DX: G31.9 Degenerative disease of nervous system, unspecified (principal); R51.9 Headache, unspecified; R42 Dizziness and giddiness
CPT/HCPCS: 70551

== ENCOUNTER → 2022-03-24 | Outpatient (CLI) | payer MEDICARE, OTHER ==
[2022-03-24 10:23] LABS: HEMATOCRIT 40 % (35-52); HEMOGLOBIN 13.1 g/dL (11.5-16.0); MEAN CORPUSCULAR HEMOGLOBIN 31 pg (25-34); MEAN CORPUSCULAR HGB CONC 33 g/dL (32-36); MEAN CORPUSCULAR VOLUME 95 fL (80-99); MEAN PLATELET VOLUME 9.8 fL (9.0-12.2); PLATELET COUNT 262 10^3/uL (130-400); WHITE BLOOD COUNT 6.4 10^3/uL (4.3-11.0)
[2022-03-24 10:53] LABS: ALANINE AMINOTRANSFERASE 24 U/L (0-55); ALBUMIN 4.2 GM/DL (3.2-4.5); ALKALINE PHOSPHATASE 73 U/L (40-136); BILIRUBIN,TOTAL 0.3 MG/DL (0.1-1.0); BUN/CREATININE RATIO 19; CALCIUM 9.6 MG/DL (8.5-10.1); CARBON DIOXIDE 23 MMOL/L (21-32); CHLORIDE 100 MMOL/L (98-107); CREATINE KINASE 56 U/L (29-168); CREATININE SERUM 0.94 MG/DL (0.60-1.30); GFR ESTIMATED 61; GLUCOSE 204 MG/DL (70-105); POTASSIUM 5.3 MMOL/L (3.6-5.0); SODIUM 137 MMOL/L (135-145); TOTAL PROTEIN 6.8 GM/DL (6.4-8.2)
== END ==
LOC: CARD 09:48
PROVIDERS: ATTEND Nurse Practitioner Family
DX: M79.602 Pain in left arm (principal); D64.9 Anemia, unspecified; I10 Essential (primary) hypertension
CPT/HCPCS: 36415; 80053; 82550; 82607; 83540; 84484; 85027; 93005

== ENCOUNTER 2022-04-30 13:58 | Emergency (ER) | payer MEDICARE, OTHER ==
[~2022-04-30] VITALS: Ht 167.7 cm; Wt 98.4 kg
--- NOTE | 2022-04-30 14:23 | ED General ---
General Chief Complaint: Bite-Animal/Human/Insect Stated Complaint: DOG BITE TO LEFT WRIST Source of Information: Patient Exam Limitations: No Limitations History of Present Illness Date Seen by Provider: Apr 30, 2022 Time Seen by Provider: 14:22 Initial Comments Patient is a 81-year-old female presents ED with a dog bite to her left hand. She states this occurred around 1:00. This was her own dog at home who is 16 years of age and got aggravated when she attempted to touch him. This resulted in 2 superficial lacerations to the top side of the left hand. She is currently on Plavix. She is having difficulty controlling bleeding. Normal active range of motion of her digits but not up-to-date her tetanus. Mild bleeding on arrival. Denies fever, chills, nausea, vomiting, diarrhea. Allergies and Home Medications Allergies Coded Allergies: cephaeline (Unverified Allergy, Mild, 04/19/16) turmeric (Unverified Allergy, Mild, 04/19/16) Sulfa (Sulfonamide Antibiotics) (Verified Allergy, Unknown, 08/29/07) ampicillin (Verified Allergy, Unknown, 08/29/07) aspirin (Verified Allergy, Unknown, 08/29/07) gentamicin (Verified Allergy, Unknown, 08/29/07) hydrogen peroxide (Verified Allergy, Unknown, 08/29/07) moxifloxacin (Verified Allergy, Unknown, 08/29/07) Uncoded Allergies: PAUD'ARCO (Allergy, Unknown, 04/19/16) Patient Home Medication List Home Medication List Reviewed: Yes Acetylcysteine (Nac) 600 Mg Capsule, 600 MG PO BID, (Reported) Entered as Reported by: SANDY SCHILLING on 02/25/21 1015 Albuterol Sulfate (Albuterol Sulfate) 2.5 Mg/0.5 Ml Vial.neb, 2.5 MG INH Q4H PRN for SHORTNESS OF BREATH, (Reported) Entered as Reported by: SANDY SCHILLING on 02/25/21 1015 Albuterol Sulfate (Proair Hfa) 1 Puff Puff, 2 PUFF IH Q4H PRN for SHORTNESS OF BREATH, (Reported) Entered as Reported by: SANDY SCHILLING on 02/25/21 1020 Aspirin (Aspirin EC) 81 Mg Tablet.dr, 81 MG PO 1700, (Reported) Entered as Reported by: SANDY SCHILLING on 02/25/21 1015 Azithromycin (Azithromycin) 250 Mg Tablet, 250 MG PO DAILY, (Reported) Entered as Reported by: SANDY SCHILLING on 02/25/21 1015 Calcium/Magnesium/Zinc (Ggwaven-Rzgmylddl-Ltbs Tablet) 1 Each Tablet, 1 EACH PO BID, (Reported) Entered as Reported by: SANDY SCHILLING on 02/25/21 1015 Carboxymethyl/Gly/Poly80/Pf (Refresh Optive Advanced Drops) 1 Each Droperette, 1 EACH OU PRN PRN for DRY EYES, (Reported) Entered as Reported by: SANDY SCHILLING on 02/25/21 1015 Cetirizine HCl (Cetirizine HCl) 10 Mg Tablet, 10 MG PO DAILY, (Reported) Entered as Reported by: SANDY SCHILLING on 02/25/21 1015 Clopidogrel Bisulfate (Plavix) 75 Mg Tablet, 75 MG PO Q48H, (Reported) Entered as Reported by: MARGARITA LIRA on 08/18/16 1318 Doxycycline Monohydrate (Doxycycline Monohydrate) 100 Mg Tablet, 100 MG PO BID Prescribed by: JACOB MEDELLIN on 04/30/22 1500 Duloxetine HCl (Duloxetine HCl) 30 Mg Capsule.dr, 30 MG PO Q48H, (Reported) Entered as Reported by: SANDY SCHILLING on 02/25/21 1015 Formoterol Fumarate (Perforomist) 20 Mcg/2 Ml Vial.neb, 20 MCG IH BID, (Reported) Entered as Reported by: SANDY SCHILLING on 02/25/21 1015 Gemfibrozil (Gemfibrozil) 600 Mg Tablet, 600 MG PO BID WITH MEALS, (Reported) Entered as Reported by: ALETA TURNER on 04/23/17 0956 Glipizide (Glipizide Xl) 2.5 Mg Tab.er.24, 2.5 MG PO DAILY, (Reported) Entered as Reported by: MARGARITA LIRA on 08/18/16 1318 Hydrocodone/Acetaminophen (Hydrocodone-Acetamin 5-325 mg) 1 Each Tablet, 0.5 EA PO BID PRN for PAIN-MODERATE (5-7), (Reported) Entered as Reported by: SANDY SCHILLING on 02/25/21 1015 Latanoprost (Xalatan) 2.5 Ml Drops, 1 DROP OU DAILY, (Reported) Entered as Reported by: SANDY SCHILLING on 02/25/21 1015 Metoprolol Tartrate (Metoprolol Tartrate) 50 Mg Tablet, 50 MG PO BID, (Reported) Entered as Reported by: SANDY SCHILLING on 02/25/21 1015 Montelukast Sodium (Singulair) 10 Mg Tablet, 10 MG PO 1700, (Reported) Entered as Reported by: MARGARITA LIRA on 08/18/16 1318 Nitroglycerin (Nitroglycerin) 0.4 Mg Tab.subl, 0.4 MG SL UD PRN for CHEST PAIN, (Reported) Entered as Reported by: SANDY SCHILLING on 02/25/21 1015 [place]amplain-3/Dha/Epa/Fish Oil (Fish Oil 1,000 mg Softgel) 1 Each Capsule, 2 EACH PO BID, (Reported) Entered as Reported by: SANDY SCHILLING on 02/25/21 1015 Pantoprazole Sodium (Pantoprazole Sodium) 40 Mg Tablet.dr, 40 MG PO 1700, (Reported) Entered as Reported by: MARGARITA LIRA on 08/18/16 1317 Revefenacin (Yupelri) 175 Mcg/3 Ml Vial.neb, 175 MCG IH 1200, (Reported) Entered as Reported by: SANDY SCHILLING on 02/25/21 1015 Vit C/E/Zn/Coppr/Lutein/Zeaxan (Preservision Areds 2 Softgel) 1 Each Capsule, 1 EACH PO BID, (Reported) Entered as Reported by: SANDY SCHILLING on 02/25/21 1015 [Biest(50/50)/T] 0.5/0.5/1 CREAM.APPL, 0.5 ML TOP DAILY, (Reported) Entered as Reported by: SANDY SCHILLING on 02/25/21 1031 [Progesterone] 200 MINOR, 50 MG PO MO,TU,WE,TH,FR,SA, (Reported) Entered as Reported by: SANDY SCHILLING on 02/25/21 1015 Review of Systems Review of Systems Constitutional: No chills, No diaphoresis, No malaise, No weakness EENTM: No hearing loss, No ear pain, No blurred vision, No double vision Respiratory: No cough, No dyspnea on exertion Cardiovascular: No chest pain Gastrointestinal: No abdominal pain, No diarrhea, No dysphagia, No nausea, No vomiting Genitourinary: No decreased output, No discharge Musculoskeletal: No back pain, No joint pain; muscle pain Skin: change in color All Other Systems Reviewed Negative Unless Noted: Yes Past Vnsnnnz-Kxwief-Tbusbc Hx Immunizations Up To Date Tetanus Booster (TDap): Unknown Seasonal Allergies Seasonal Allergies: Yes Past Medical History Surgeries: Yes (ANKLE, ant/post repair, r CTR, ) Eye Surgery, Hysterectomy Respiratory: Yes Asthma, Sleep Apnea, COPD, Emphysema Currently Using CPAP: Yes Cardiac: Yes (stent, ) Hypertension Neurological: Yes Neuropathy Reproductive Disorders: No 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 0.0oz. 99.976375el; 34.72 BMI Method:Actual General Appearance: No Apparent Distress, WD/WN Eyes: Bilateral Eye Normal Inspection, Bilateral Eye PERRL, Bilateral Eye EOMI HEENT: PERRL/EOMI, TMs Normal, Normal ENT Inspection Neck: Full Range of Motion, Normal Inspection, Non Tender, Supple Respiratory: Chest Non Tender, Lungs Clear, Normal Breath Sounds, No Accessory Muscle Use, No Respiratory Distress Cardiovascular: Regular Rate, Rhythm, No Edema, No Gallop, No JVD Gastrointestinal: Normal Bowel Sounds, No Organomegaly, No Pulsatile Mass, Non Tender Back: Normal Inspection, No CVA Tenderness, No Vertebral Tenderness Extremity: Other (Two superficial lacerations to the left dorsum hand. Mild bleeding to one of the laceration no tendon or muscular involvement. Normal active range of motion of the digits) Neurologic/Psychiatric: Alert, Oriented x3, Normal Mood/Affect Procedures/Interventions Wound Location: Upper Extremities Other Wound Location left hand Wound Length (cm): 2 Wound's Depth, Shape: superficial, sub Q Wound Explored: clean Irrigated w/ Saline (ccs): 200 Betadine Prep?: Yes Anesthesia: 1% Lidocaine Volume Anesthetic (ccs): 2 Suture: Ethlion Suture Size: 5-0 Number of Sutures: 4 Layer Closure?: 1 Sterile Dressing Applied?: Yes Progress/Results/Core Measures Suspected Sepsis SIRS Temperature: Pulse: Respiratory Rate: Blood Pressure / Mean: Results/Orders My Orders Orders - [facility] SWIFT Dipht,Pertuss(Acell),Tet Adult (Boostrix (04/30/22 14:30) Lidocaine 1% Inj 20 Ml (Xylocaine 1% Inj (04/30/22 14:30) Lidocaine/Epi 2% 1:100,000 (Xylocaine/Ep (04/30/22 15:30) Lidocaine/Epi Mpf 2% 1:200,000 (Xylocain (04/30/22 15:31) Medications Given in ED Current Medications Medications Dose Ordered Sig/Bulmaro Route Start Time Stop Time Status Last Admin Dose Admin Diphtheria/ Tetanus/Acell Pertussis 0.5 ml ONCE ONCE IM 04/30/22 14:30 04/30/22 14:31 DC 04/30/22 14:41 0.5 ML Lidocaine HCl 20 ml ONCE ONCE INJ 04/30/22 14:30 04/30/22 14:31 DC 04/30/22 14:37 20 ML Lidocaine/ Epinephrine 20 ml ONCE ONCE INJ 04/30/22 15:30 04/30/22 15:31 DC 04/30/22 15:55 20 ML Vital Signs/I&O 04/30/22 14:12 Temp 36.1 Pulse 73 Resp 20 B/P (MAP) 182/81 (114) Pulse Ox 94 O2 Delivery Room Air Capillary Refill : Departure Communication (PCP) Patient has 2 superficial lacerations to the left hand. Continued bleeding to one of the lacerations. Four Ethilon sutures were placed lightly to allow continue drainage secondary to dog bite which potentially could introduce infection into the skin. Bleeding was controlled with lidocaine with epinephrine. Remove in 10 days. Discharge doxycycline prophylactically for dog bite. Patient Was given a tetanus shot. Dog is up-to-date on his rabies. Return precaution were discussed such as increased redness, swelling, pain Impression Primary Impression: Dog bite Disposition: 01 HOME, SELF-CARE Condition: Stable Departure-Patient Inst. Decision time for Depature: 15:00 Referrals: DANITA PALOMO MD (PCP/Family) Primary Care Physician Patient Instructions: Animal Bites (DC) Add. Discharge Instructions: Remove sutures in 8 to 10 days All discharge instructions reviewed with patient and/or family. Voiced understanding. Scripts Doxycycline Monohydrate (Doxycycline Monohydrate) 100 Mg Tablet 100 MG PO BID for 7 Days, #14 TAB Prov: WES SWIFT 04/30/22 WES SWIFT Apr 30, 2022 14:23
[2022-04-30] MEDS ORDERED: LIDOCAINE 1% INJ 20 ML VIAL INJ ONE (14:30)
[2022-04-30] MEDS ORDERED: TETANUS,DIPTH,PERTUSS P/F (BOOSTRIX) 0.5 ML VIAL IM ONE (14:30)
[2022-04-30] MEDS ORDERED: DOXY100T31 PO (15:00)
[2022-04-30] MEDS ORDERED: LIDOCAINE/EPI 2% 1:100,00 (XYLOCAINE) 20 ML VIAL INJ ONE (15:30)
[2022-04-30] MEDS ORDERED: LIDOCAINE/EPI 2% 1:200,00 (XYLOCAINE) 10 ML VIAL ONE (15:31)
[2022-04-30 16:11] VITALS: BP 156/77
== END 2022-04-30 16:11 | disposition home or self-care (01) ==
LOC: EDUNIT# 13:58 → ER 14:02
DX: S61.412A Laceration without foreign body of left hand, initial encounter (principal); G47.30 Sleep apnea, unspecified; Z99.89 Dependence on other enabling machines and devices; Z23 Encounter for immunization; Z28.310 Unvaccinated for COVID-19; W54.0XXA Bitten by dog, initial encounter; Z79.02 Long term (current) use of antithrombotics/antiplatelets; Y92.009 Unspecified place in unspecified non-institutional (private) residence as the place of occurrence of the external cause
CPT/HCPCS: 90715

== ENCOUNTER → 2022-06-23 | Outpatient (CLI) | payer MEDICARE, OTHER ==
[~2022-06-23] MED LIST changes: +DOXY100T31 PO
--- NOTE | 2022-06-23 15:29 | Diagnostic Imaging Report ---
INDICATION: Postmenopausal state. COMPARISON: None available. FINDINGS: AP Spine L2-L4: [BMD (g/cm2): 1.452] [T-Score: 2.1] [Z-Score: 2.9] [BMD Previous: NA] [BMD % Change: NA] LT Hip Neck: [BMD (g/cm2): 0.832] [T-Score: -1.5] [Z-Score: 0.0] LT Hip Total: [BMD (g/cm2):0.988] [T-Score:-0.2] [Z-Score: 1.1] [BMD Previous: NA] [BMD % Change: NA] RT Hip Neck: [BMD (g/cm2):0.905] [T-Score:-1.0] [Z-Score:0.5] RT Hip Total: [BMD (g/cm2):1.013] [T-score:0.0] [Z-Score:1.3] [BMD Previous:NA] [BMD % Change:NA] *Indicates significant change from prior examination based on 95% confidence level. World Health Organization criteria for BMD interpretation classify patients as Normal (T-score at or above -1.0), Osteopenic (T-score between -1.0 and -2.5) or Osteoporotic (T-score at or below -2.5). LIMITATIONS AND MODIFICATION: None. FRACTURE RISK (FRAX SCORE): The ten year probability of (%): Major Osteoporotic Fracture: [25] Hip Fracture: [15] IMPRESSION: 1. Osteopenia (Low bone mass). 2. Baseline examination. 3. See below National Osteoporosis Foundation guidelines on when to potentially initiate pharmacologic therapy. Based on the National Osteoporosis Foundation Guidelines, pharmacologic treatment should be initiated in any of the following, unless clinical conditions suggest otherwise: * Any patient with prior fragility fracture of the hip or vertebrae. A spine fracture indicates 5X risk for subsequent spine fracture and 2X risk for subsequent hip fracture. * Osteoporosis (T-score <-2.5). * Postmenopausal women and men age 50 and older with low bone mass/osteopenia (T-score between -1.0 and -2.5) by DXA and 10-year major osteoporotic fracture greater than 20% or a 10-year probability of hip fracture greater than 3%. These fracture risks are supplied above in the FRAX score, if applicable. * Clinician judgement and/or patient preferences may indicate treatment for people with 10-year fracture probabilities above or below these levels. Dictated by: Dictated on workstation # [id number]
--- NOTE | 2022-06-23 20:57 | Diagnostic Imaging Report ---
PROCEDURE: US Thyroid. TECHNIQUE: Multiple real-time grayscale images were obtained of the thyroid in various projections. INDICATION: Thyroid nodules. COMPARISON: 11/06/2020, 04/13/2017, and 12/09/2015. FINDINGS: The right lobe of the thyroid gland measures 4.8 x 1.6 x 1.2 cm. It demonstrates a severely heterogeneous echotexture throughout. A round predominantly cystic nodule with internal hyperechoic foci and both circumscribed and indistinct margins is seen within the inferior pole of the right thyroid lobe. This measures approximately 1.3 x 0.9 x 0.7 cm, not significantly changed since the prior examination. The left lobe of the thyroid gland measures 4.6 x 1.9 x 1.3 cm. It demonstrates a severely heterogeneous echotexture throughout. Multiple benign-appearing colloid cysts are identified throughout the left thyroid lobe, including one within the superior pole which measures up to 1.1 cm. The isthmus is mildly thickened. IMPRESSION: Bilateral cystic nodules appearing stable from the prior examination. This includes colloid cysts within the left thyroid lobe. Severe diffuse heterogeneity of the thyroid gland without new discrete thyroid nodule. Dictated by: Dictated on workstation # [id number]
== END ==
LOC: RAD 10:25
PROVIDERS: ATTEND Nurse Practitioner Family
DX: E04.2 Nontoxic multinodular goiter (principal); M85.80 Other specified disorders of bone density and structure, unspecified site; Z78.0 Asymptomatic menopausal state
CPT/HCPCS: 76536; 77080

== ENCOUNTER → 2022-07-15 | Outpatient (CLI) | payer MEDICARE, OTHER ==
[~2022-07-15] MED LIST changes: +ALBU8.5H6 IH; -RT-ALBUINH IH
== END ==
LOC: CARD 13:36
PROVIDERS: ATTEND Internal Medicine Cardiovascular Disease
DX: I51.7 Cardiomegaly (principal); I25.10 Atherosclerotic heart disease of native coronary artery without angina pectoris
CPT/HCPCS: 93306

== ENCOUNTER 2023-01-21 09:26 | Inpatient (IN) | payer MEDICARE, OTHER ==
[~2023-01-21] VITALS: Ht 168 cm; Wt 106.0 kg
[~2023-01-21 09:26] MED LIST changes: +CLOP-31 PO; -CLOP75TA69 PO; -DOXY-311 PO; +DOXY-444 PO; +MONT-47 PO; -MONT10TA21 PO
--- NOTE | 2023-01-21 10:06 | ED General ---
General Chief Complaint: Fever-Adult/Adol Stated Complaint: FEVER | SORE THROAT Source of Information: Patient Exam Limitations: No Limitations History of Present Illness Date Seen by Provider: January 21, 2023 Time Seen by Provider: 09:56 Initial Comments Here with report of fever, cough, sore throat and overall not feeling well for the past 3 to 4 days. States that she visited quite a few people on Wednesday morning and there was a good couple in which the evin was coughing quite a bit. She does have history of lung disease and follows with Dr. George in [place] for pulmonology. She states she has been on erythromycin for 3 years to help prevent COVID. She is not vaccinated for COVID because of severe reactions that she has had to other medicines and she was worried about severe allergic reaction. She follows with Dr. Abundio samson locally for PCP and usually sees Francesca. Denies nausea, vomiting or diarrhea. Timing/Duration: 3-4 Days Severity: Moderate Associated Systoms: No Chest Pain; Cough, Fever/Chills; No Headaches, No Nausea/Vomiting; Shortness of Air; No Weakness Allergies and Home Medications Allergies Coded Allergies: cephaeline (Unverified Allergy, Mild, 01/21/23) turmeric (Unverified Allergy, Mild, 01/21/23) Sulfa (Sulfonamide Antibiotics) (Verified Allergy, Unknown, 01/21/23) ampicillin (Verified Allergy, Unknown, 01/21/23) aspirin (Verified Allergy, Unknown, 01/21/23) gentamicin (Verified Allergy, Unknown, 01/21/23) hydrogen peroxide (Verified Allergy, Unknown, 01/21/23) moxifloxacin (Verified Allergy, Unknown, 01/21/23) Uncoded Allergies: PAUD'ARCO (Allergy, Unknown, 04/19/16) Patient Home Medication List Home Medication List Reviewed: Yes Acetylcysteine (Nac) 600 Mg Capsule, 600 MG PO BID, (Reported) Entered as Reported by: SANDY SCHILLING on 02/25/21 1015 Albuterol Sulfate (Albuterol Sulfate) 2.5 Mg/0.5 Ml Vial.neb, 2.5 MG INH Q4H PRN for SHORTNESS OF BREATH, (Reported) Entered as Reported by: SANDY SCHILLING on 02/25/21 1015 Albuterol Sulfate (Ventolin Hfa) 1 Puff Puff, 2 PUFF IH Q4H PRN for SHORTNESS OF BREATH, (Reported) Entered as Reported by: SANDY SCHILLING on 02/25/21 1020 Aspirin (Aspirin EC) 81 Mg Tablet.dr, 81 MG PO 1700, (Reported) Entered as Reported by: SANDY SCHILLING on 02/25/21 1015 Azithromycin (Azithromycin) 250 Mg Tablet, 250 MG PO DAILY, (Reported) Entered as Reported by: SANDY SCHILLING on 02/25/21 1015 Calcium/Magnesium/Zinc (Srzgahj-Wjxhnjwgq-Nafk Tablet) 1 Each Tablet, 1 EACH PO BID, (Reported) Entered as Reported by: SANDY SCHILLING on 02/25/21 1015 Carboxymethyl/Gly/Poly80/Pf (Refresh Optive Advanced Drops) 1 Each Droperette, 1 EACH OU PRN PRN for DRY EYES, (Reported) Entered as Reported by: SANDY SCHILLING on 02/25/21 1015 Cetirizine HCl (Cetirizine HCl) 10 Mg Tablet, 10 MG PO DAILY, (Reported) Entered as Reported by: SANDY SCHILLING on 02/25/21 1015 Clopidogrel Bisulfate (Plavix) 75 Mg Tablet, 75 MG PO Q48H, (Reported) Entered as Reported by: MARGARITA LIRA on 08/18/16 1318 Doxycycline Monohydrate (Doxycycline Monohydrate) 100 Mg Tablet, 100 MG PO BID Prescribed by: JACOB MEDELLIN on 04/30/22 1500 Duloxetine HCl (Duloxetine HCl) 30 Mg Capsule.dr, 30 MG PO Q48H, (Reported) Entered as Reported by: SANDY SCHILLING on 02/25/21 1015 Formoterol Fumarate (Perforomist) 20 Mcg/2 Ml Vial.neb, 20 MCG IH BID, (Repor soledad) Entered as Reported by: SANDY SCHILLING on 02/25/21 1015 Gemfibrozil (Gemfibrozil) 600 Mg Tablet, 600 MG PO BID WITH MEALS, (Reported) Entered as Reported by: ALETA TURNER on 04/23/17 0956 Glipizide (Glipizide Xl) 2.5 Mg Tab.er.24, 2.5 MG PO DAILY, (Reported) Entered as Reported by: MARGARITA LIRA on 08/18/16 1318 Hydrocodone/Acetaminophen (Hydrocodone-Acetamin 5-325 mg) 1 Each Tablet, 0.5 EA PO BID PRN for PAIN-MODERATE (5-7), (Reported) Entered as Reported by: SANDY SCHILLING on 02/25/21 1015 Latanoprost (Xalatan) 2.5 Ml Drops, 1 DROP OU DAILY, (Reported) Entered as Reported by: SANDY SCHILLING on 02/25/21 1015 Metoprolol Tartrate (Metoprolol Tartrate) 50 Mg Tablet, 50 MG PO BID, (Reported) Entered as Reported by: SANDY SCHILLING on 02/25/21 1015 Montelukast Sodium (Singulair) 10 Mg Tablet, 10 MG PO 1700, (Reported) Entered as Reported by: MARGARITA LIRA on 08/18/16 1318 Nitroglycerin (Nitroglycerin) 0.4 Mg Tab.subl, 0.4 MG SL UD PRN for CHEST PAIN, (Reported) Entered as Reported by: SANDY SCHILLING on 02/25/21 1015 Scribner-3/Dha/Epa/Fish Oil (Fish Oil 1,000 mg Softgel) 1 Each Capsule, 2 EACH PO BID, (Reported) Entered as Reported by: SANDY SCHILLING on 02/25/21 1015 Pantoprazole Sodium (Pantoprazole Sodium) 40 Mg Tablet.dr, 40 MG PO 1700, (Reported) Entered as Reported by: MARGARITA LIRA on 08/18/16 1317 Revefenacin (Yupelri) 175 Mcg/3 Ml Vial.neb, 175 MCG IH 1200, (Reported) Entered as Reported by: SANDY SCHILLING on 02/25/21 1015 Vit C/E/Zn/Coppr/Lutein/Zeaxan (Preservision Areds 2 Softgel) 1 Each Capsule, 1 EACH PO BID, (Reported) Entered as Reported by: SANDY SCHILLING on 02/25/21 1015 [Biest(50/50)/T] 0.5/0.5/1 CREAM.APPL, 0.5 ML TOP DAILY, (Reported) Entered as Reported by: SANDY SCHILLING on 02/25/21 1031 [Progesterone] 200 MINOR, 50 MG PO MO,TU,WE,TH,FR,SA, (Reported) Entered as Reported by: SANDY SCHILLING on 02/25/21 1015 Review of Systems Review of Systems Constitutional: see HPI, chills, fever EENTM: nose congestion, throat pain Respiratory: cough, short of breath Cardiovascular: No chest pain, No edema Gastrointestinal: no symptoms reported Genitourinary: no symptoms reported Musculoskeletal: No back pain, No muscle pain Skin: no symptoms reported Past Gmbvsum-Scgjya-Ityknj Hx Patient Social History Tobacco Use?: No Substance use?: No Alcohol Use?: No Immunizations Up To Date Tetanus Booster (TDap): Unknown Seasonal Allergies Seasonal Allergies: Yes Past Medical History Surgeries: Yes (ANKLE, ant/post repair, r CTR, ) Eye Surgery, Hysterectomy Respiratory: Yes Asthma, Sleep Apnea, COPD, Emphysema Currently Using CPAP: Yes Cardiac: Yes (stent, ) Hypertension Neurological: Yes Neuropathy Reproductive Disorders: No [employer] History: Hysterectomy Gastrointestinal: Yes Gastroesophageal Reflux Musculoskeletal: Yes Arthritis, Chronic Back Pain Endocrine: Yes Cancer: No Psychosocial: No Integumentary: No Blood Disorders: No Family Medical History Reviewed and Corrections made No Pertinent Family Hx Physical Exam Vital Signs Vital Signs - First Documented Capillary Refill : Height, Weight, BMI Height: 5'6.00" Weight: 220lbs. 0.0oz. [id number]; 34.00 BMI Method:Actual General Appearance: No Apparent Distress, WD/WN HEENT: PERRL/EOMI, Pharyngeal Erythema Neck: Non Tender, Supple Respiratory: Lungs Clear, Normal Breath Sounds Cardiovascular: Regular Rate, Rhythm, No Murmur Gastrointestinal: Non Tender, Soft Back: Normal Inspection, No CVA Tenderness, No Vertebral Tenderness Extremity: Normal Range of Motion, Non Tender Neurologic/Psychiatric: Alert, Oriented x3 Skin: Normal Color, Warm/Dry Focused Exam Lactate Level 01/21/23 09:50: Lactic Acid Level 1.54 Lactic Acid Level Laboratory Tests Test 01/21/23 09:50 Lactic Acid Level 1.54 MMOL/L (0.50-2.00) Procedures/Interventions Suture Size: 5-0 Progress/Results/Core Measures Suspected Sepsis SIRS Temperature: Pulse: Respiratory Rate: Laboratory Tests 01/21/23 09:50: White Blood Count 8.7 Blood Pressure / Mean: 01/21/23 09:50: Lactic Acid Level 1.54 Laboratory Tests 01/21/23 09:50: Creatinine 0.91, INR Comment 1.0, Platelet Count 266, Total Bilirubin 0.4 Results/Orders Lab Results Laboratory Tests Test 01/21/23 09:50 01/21/23 10:34 Range/Units White Blood Count 8.7 4.3-11.0 10^3/uL Red Blood Count 4.35 3.80-5.11 10^6/uL Hemoglobin 13.4 11.5-16.0 g/dL Hematocrit 40 35-52 % Mean Corpuscular Volume 92 80-99 fL Mean Corpuscular Hemoglobin 31 25-34 pg Mean Corpuscular Hemoglobin Concent 33 32-36 g/dL Red Cell Distribution Width 13.3 10.0-14.5 % Platelet Count 266 130-400 10^3/uL Mean Platelet Volume 9.8 9.0-12.2 fL Immature Granulocyte % (Auto) 0 % Neutrophils (%) (Auto) 72 42-75 % Lymphocytes (%) (Auto) 14 12-44 % Monocytes (%) (Auto) 13 H 0-12 % Eosinophils (%) (Auto) 1 0-10 % Basophils (%) (Auto) 1 0-10 % Neutrophils # (Auto) 6.2 1.8-7.8 10^3/uL Lymphocytes # (Auto) 1.2 1.0-4.0 10^3/uL Monocytes # (Auto) 1.1 H 0.0-1.0 10^3/uL Eosinophils # (Auto) 0.0 0.0-0.3 10^3/uL Basophils # (Auto) 0.1 0.0-0.1 10^3/uL Immature Granulocyte # (Auto) 0.0 0.0-0.1 10^3/uL Prothrombin Time 13.8 12.2-14.7 SEC INR Comment 1.0 0.8-1.4 Activated Partial Thromboplast Time 34 24-35 SEC Sodium Level 131 L 135-145 MMOL/L Potassium Level 4.6 3.6-5.0 MMOL/L Chloride Level 98 98-107 MMOL/L Carbon Dioxide Level 21 21-32 MMOL/L Anion Gap 12 5-14 MMOL/L Blood Urea Nitrogen 17 7-18 MG/DL Creatinine 0.91 0.60-1.30 MG/DL Estimat Glomerular Filtration Rate 63 BUN/Creatinine Ratio 19 Glucose Level 217 H 70-105 MG/DL Lactic Acid Level 1.54 0.50-2.00 MMOL/L Calcium Level 9.2 8.5-10.1 MG/DL Corrected Calcium 9.1 8.5-10.1 MG/DL Total Bilirubin 0.4 0.1-1.0 MG/DL Aspartate Amino Transf (AST/SGOT) 34 5-34 U/L Alanine Aminotransferase (ALT/SGPT) 18 0-55 U/L Alkaline Phosphatase 73 40-136 U/L Total Protein 7.4 6.4-8.2 GM/DL Albumin 4.1 3.2-4.5 GM/DL Influenza Type A (RT-PCR) Not Detected Not Detecte Influenza Type B (RT-PCR) Not Detected Not Detecte SARS-CoV-2 RNA (RT-PCR) Detected H Not Detecte Urine Color YELLOW Urine Clarity SL CLOUDY Urine pH 5.5 5-9 Urine Specific [place] >=1.030 1.016-1.022 Urine Protein 2+ H NEGATIVE Urine Glucose (UA) NEGATIVE NEGATIVE Urine Ketones NEGATIVE NEGATIVE Urine Nitrite NEGATIVE NEGATIVE Urine Bilirubin NEGATIVE NEGATIVE Urine Urobilinogen 1.0 < = 1.0 MG/DL Urine Leukocyte Esterase NEGATIVE NEGATIVE Urine RBC (Auto) NEGATIVE NEGATIVE Urine RBC NONE /HPF Urine WBC RARE /HPF Urine Squamous Epithelial Cells 2-5 /HPF Urine Crystals NONE /LPF Urine Bacteria TRACE /HPF Urine Casts NONE /LPF Urine Mucus NEGATIVE /LPF Urine Culture Indicated NO My Orders Orders - MAYI CAMACHO MD Cbc With Automated Diff (01/21/23 10:04) Comprehensive Metabolic Panel (01/21/23 10:04) Blood Culture (01/21/23 10:04) Sputum Culture (01/21/23 10:04) Urinalysis (01/21/23 10:04) Urine Culture (01/21/23 10:04) Protime With Inr (01/21/23 10:04) Partial Thromboplastin Time (01/21/23 10:04) Chest 1 View, Ap/Pa Only (01/21/23 10:04) Ed Iv/Invasive Line Start (01/21/23 10:04) Vital Signs Adult Sepsis Patie Q15M (01/21/23 10:04) O2 (01/21/23 10:04) Remove Rings In Anticipation O (01/21/23 10:04) Lactic Acid Analyzer (01/21/23 10:04) Influenza A And B By Pcr (01/21/23 10:04) Covid 19 Inhouse Test (01/21/23 10:04) Ns Iv 500 Ml (Sodium Chloride 0.9%) (01/21/23 11:30) Dexamethasone Tablet (Decadron Tablet) (01/21/23 12:26) Medications Given in ED Current Medications Medications Dose Ordered Sig/Bulmaro Route Start Time Stop Time Status Last Admin Dose Admin Sodium Chloride 500 ml @ 0 mls/hr Q0M ONCE IV 01/21/23 11:30 01/21/23 11:31 DC 01/21/23 11:47 500 MLS/HR Vital Signs/I&O 01/21/23 01/21/23 01/21/23 09:55 09:55 09:55 Temp 37.1 37.1 Pulse 75 75 Resp 18 18 B/P (MAP) 129/61 129/61 (83) Pulse Ox 93 93 93 O2 Delivery Nasal Cannula Nasal Cannula Nasal Cannula O2 Flow Rate 1.00 1.00 1.00 Capillary Refill : Progress Note : Progress Note Seen and evaluated. Sepsis protocol initiated due to fever and shortness of air. O2 placed at 2 L due to O2 saturations resting at 88 to 89%. She is not normally on oxygen. CBC, CMP, CRP, blood cultures and lactic acid ordered. We will check influenza and COVID. Monitor patient. Differential diagnosis includes pneumonia, UTI, viral infections including COVID and influenza. 1100: Patient is positive for COVID. CBC is grossly normal. CMP shows sodium of 131 and glucose elevated at 217 but otherwise grossly normal. Lactic acid negative. UA does show concentrated urine. Flu is negative. 1120: Normal saline 500 mL bolus ordered for concentrated urine. She is still requiring 2 L of O2. I will make contact with Dr. Del Castillo. Chest x-ray reviewed by me does show bibasilar thickening suggestive of infiltrate with right greater than left on my interpretation. Pending radiology report. 1235: I was able to make contact with Dr. Del Castillo. She is excepted the patient for admission, inpatient status. We will initiate Decadron 6 mg p.o. now for the COVID-pneumonia continue O2 and supportive care. Patient does have history of diabetes and will need further support while taking the steroids. We will initiate sliding scale. Patient does not have elevated lactic acid nor findings of severe sepsis and does not require high-volume fluid resuscitation. She did receive normal saline 500 mL bolus as doing well on 2 L O2 currently. Patient request DNR although is open to any therapy that would be needed if she became sick i ncluding intubation if needed. This was discussed with Dr. DEL CASTILLO. Diagnostic Imaging Diagonstic Imaging: Xray Plain Films/CT/US/NM/MRI: chest Comments [facility] [place], [place] NAME: MARQUISE JACKSON [facility] REC#: [id number] PT STATUS: REG ER : 1940 PHYSICIAN: MAYI CAMACHO MD ADMIT DATE: 01/21/23/ER Draft Date of Exam:01/21/23 CHEST 1 VIEW, AP/PA ONLY CLINICAL INDICATION: Patient with fever and sore throat. EXAM: Portable chest x-ray upright view. COMPARISON: Chest x-ray dated 09/16/2020. FINDINGS: Lungs/pleura: There is stable minimal discoid scarring involving the left lower lung field again noted. There is slight progression of mild right basilar atelectasis versus infiltrate. The remainder of the lungs are clear. There is no pneumothorax. There is no pleural effusion. Mediastinum: Unremarkable. Pulmonary vasculature: Unremarkable. Heart: There is cardiomegaly. Bones/extrathoracic soft tissue: There are degenerative spurs involving the thoracic spine. IMPRESSION: 1: There is interval development of mild right lung base atelectasis versus infiltrate. 2: There is again seen minimal discoid scarring in the left lower lung field region. 3: There is mild cardiomegaly with no significant pulmonary vascular congestion. Dictated on workstation # [id number] Dict: 01/21/23 1029 Trans: 01/21/23 1038 CVB [id number] Interpreted by: FARIDEH MERCHANT MD Electronically signed by: Reviewed: Reviewed by Me Departure Communication (Admissions) Time/Spoke to Admitting Phy: 12:21 Impression Primary Impression: Pneumonia due to COVID-19 virus Additional Impression: Hypoxia Disposition: ADMITTED INPATIENT Condition: Stable Admissions Decision to Admit Reason: Admit from ER (General) Decision to Admit/Date: January 21, 2023 Time/Decision to Admit Time: 12:21 Departure-Patient Inst. Referrals: DANITA DEL CASTILLO MD (PCP/Family) Primary Care Physician MAYI CAMACHO MD January 21, 2023 10:06
[2023-01-21 10:12] LABS: BASOPHILS # (AUTO) 0.1 10^3/uL (0.0-0.1); BASOPHILS % (AUTO) 1 % (0-10); EOSINOPHILS % (AUTO) 1 % (0-10); HEMATOCRIT 40 % (35-52); HEMOGLOBIN 13.4 g/dL (11.5-16.0); LYMPHOCYTES # (AUTO) 1.2 10^3/uL (1.0-4.0); LYMPHOCYTES % (AUTO) 14 % (12-44); MEAN CORPUSCULAR HEMOGLOBIN 31 pg (25-34); MEAN CORPUSCULAR HGB CONC 33 g/dL (32-36); MEAN CORPUSCULAR VOLUME 92 fL (80-99); MEAN PLATELET VOLUME 9.8 fL (9.0-12.2); MONOCYTES # (AUTO) 1.1 10^3/uL (0.0-1.0); MONOCYTES % (AUTO) 13 % (0-12); NEUTROPHILS # (AUTO) 6.2 10^3/uL (1.8-7.8); NEUTROPHILS % (AUTO) 72 % (42-75); PLATELET COUNT 266 10^3/uL (130-400); WHITE BLOOD COUNT 8.7 10^3/uL (4.3-11.0)
[2023-01-21 10:16] LABS: ALBUMIN 4.1 GM/DL (3.2-4.5); POTASSIUM 4.6 MMOL/L (3.6-5.0)
[2023-01-21 10:17] LABS: PROTHROMBIN TIME PATIENT 13.8 SEC (12.2-14.7)
[2023-01-21 10:18] LABS: CALCIUM 9.2 MG/DL (8.5-10.1)
[2023-01-21 10:19] LABS: TOTAL PROTEIN 7.4 GM/DL (6.4-8.2)
[2023-01-21 10:21] LABS: BILIRUBIN,TOTAL 0.4 MG/DL (0.1-1.0)
[2023-01-21 10:23] LABS: CREATININE SERUM 0.91 MG/DL (0.60-1.30)
--- NOTE | 2023-01-21 10:39 | Diagnostic Imaging Report ---
CLINICAL INDICATION: Patient with fever and sore throat. EXAM: Portable chest x-ray upright view. COMPARISON: Chest x-ray dated 09/16/2020. FINDINGS: Lungs/pleura: There is stable minimal discoid scarring involving the left lower lung field again noted. There is slight progression of mild right basilar atelectasis versus infiltrate. The remainder of the lungs are clear. There is no pneumothorax. There is no pleural effusion. Mediastinum: Unremarkable. Pulmonary vasculature: Unremarkable. Heart: There is cardiomegaly. Bones/extrathoracic soft tissue: There are degenerative spurs involving the thoracic spine. IMPRESSION: 1: There is interval development of mild right lung base atelectasis versus infiltrate. 2: There is again seen minimal discoid scarring in the left lower lung field region. 3: There is mild cardiomegaly with no significant pulmonary vascular congestion. Dictated by: Dictated on workstation # [id number]
[2023-01-21 10:47] LABS: BILIRUBIN,URINE NEGATIVE (NEGATIVE); CLARITY,URINE SL CLOUDY; COLOR,URINE YELLOW; GLUCOSE, URINE (UA) NEGATIVE (NEGATIVE); KETONES,URINE NEGATIVE (NEGATIVE); LEUKOCYTE ESTERASE ,URINE NEGATIVE (NEGATIVE); NITRITE,URINE NEGATIVE (NEGATIVE); PH,URINE 5.5 (5-9); PROTEIN,URINE 2+ (NEGATIVE)
[2023-01-21 10:56] LABS: BACTERIA,URINE TRACE /HPF; WBC,URINE RARE /HPF
[2023-01-21] MEDS ORDERED: NS IV 500 ML 500 ML IV ONE (11:30)
[2023-01-21] MEDS ORDERED: dexAMETHasone 6 MG TAB (DECADRON) PO STA (12:26)
[2023-01-21 14:04] VITALS: BP 176/74
[2023-01-21] MEDS ORDERED: CATHETER FLUSH 10 ML SYR IV PRN (14:15)
[2023-01-21] MEDS ORDERED: RT-ALBUTEROL HFA 8.5 GM INHALER IH PRN (15:00)
[2023-01-21 15:08] VITALS: BP 129/61
[2023-01-21] MEDS ORDERED: MONT-40 PO (15:53)
[2023-01-21] MEDS ORDERED: TORS10TA5 PO (15:53)
[2023-01-21] MEDS ORDERED: ALBU2.5V4 NEB (15:53)
[2023-01-21] MEDS ORDERED: GLIP5TAB26 PO (15:53)
[2023-01-21] MEDS ORDERED: CARB15DR OU (15:53)
[2023-01-21] MEDS ORDERED: METO100T12 PO ×2 (15:53)
[2023-01-21] MEDS ORDERED: CLOP75TA28 PO (15:53)
[2023-01-21] MEDS ORDERED: OMEG10005 PO ×2 (15:53)
[2023-01-21] MEDS ORDERED: BUDE0.5A NEB (15:56)
[2023-01-21] MEDS ORDERED: meTOprolol TARTRATE 50 MG (LOPRESSOR) TAB PO NR (16:00)
[2023-01-21] MEDS: inSUlin ASPART (NovoLOG) 1 UNIT/0.01 ML (CHARGE PER UNIT) SC SCH ×2 (16:16→21:07)
--- NOTE | 2023-01-21 17:37 | History & Physical ---
History of Present Illness History of Present Illness Reason for visit/HPI Pt is an 82 y/o female who is known to me from clinic. She presented to the hospital emergency department due to shortness of breath, uncontrolled coughing and fever. 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 S he states that she was not surprised that she got sick due to how much coughing he was doing in her presence. She was tested in the ER and found to be hypoxic and COVID positive. Date of Admission January 21, 2023 at 13:56 Date Seen by a Provider: January 21, 2023 Time Seen by a Provider: 17:20 Attending Physician Danita Del Castillo MD Admitting Physician Admitting Physician: Danita Del Castillo MD Attending Physician: Danita Del Castillo MD Consult Allergies and Home Medications Allergies Coded Allergies: cephaeline (Verified Allergy, Mild, 01/21/23) turmeric (Verified Allergy, Mild, 01/21/23) Sulfa (Sulfonamide Antibiotics) (Verified Allergy, Unknown, 01/21/23) ampicillin (Verified Allergy, Unknown, 01/21/23) aspirin (Verified Allergy, Unknown, 01/21/23) gentamicin (Verified Allergy, Unknown, 01/21/23) hydrogen peroxide (Verified Allergy, Unknown, 01/21/23) moxifloxacin (Verified Allergy, Unknown, 01/21/23) Uncoded Allergies: PAUD'ARCO (Allergy, Unknown, 04/19/16) Patient Home Medication List Home Medication List Reviewed: Yes Acetylcysteine (Nac) 600 Mg Capsule, 600 MG PO BID, (Reported) Entered as Reported by: SANDY SCHILLING on 02/25/21 1015 Last Action: Converted Albuterol Sulfate (Ventolin Hfa) 1 Puff Puff, 2 PUFF IH Q4H PRN for SHORTNESS OF BREATH, (Reported) Entered as Reported by: SANDY SCHILLING on 02/25/21 1020 Last Action: Reviewed Albuterol Sulfate (Albuterol Sulfate) 2.5 Mg/3 Ml (0.083 %) Vial.neb, 2.5 MG NEB Q6H PRN for SHORTNESS OF BREATH, (Reported) Entered as Reported by: SANDY SCHILLING on 01/21/231552 Last Action: Reviewed Aspirin (Aspirin EC) 81 Mg Tablet.dr, 81 MG PO 1700, (Reported) Entered as Reported by: SANDY SCHILLING on 02/25/21 101 Last Action: Continued Azithromycin (Azithromycin) 250 Mg Tablet, 250 MG PO DAILY, (Reported) Entered as Reported by: SANDY SCHILLING on 02/25/211014 Last Action: Reviewed Budesonide (Budesonide) 0.5 Mg/2 Ml Ampul.neb, 0.5 ML NEB BID, (Reported) Entered as Reported by: SANDY SCHILLING on 01/21/231555 Last Action: Continued Calcium Carbonate/Vitamin D3 (Calcium + Vitamin D Tablet) 600 Mg Calcium-5 Mcg (200 Unit) Tablet, 1 EACH PO BID, (Reported) Entered as Reported by: ASNDY SCHILLING on 01/22/23 1206 Last Action: Reviewed Carboxymethylcellulose Sodium (Refresh Tears) 0.5 % Drops, 1-2 DROPS OU Q4H PRN for DRY EYES, (Reported) Entered as Reported by: SANDY SCHILLING on 01/21/231552 Last Action: Converted Clopidogrel Bisulfate (Clopidogrel) 75 Mg Tablet, 75 MG PO Q48H, (Reported) Entered as Reported by: SANDY SCHILLING on 01/21/231552 Last Action: Continued Duloxetine HCl (Duloxetine HCl) 30 Mg Capsule.dr, 30 MG PO Q48H, (Reported) Entered as Reported by: SANDY SCHILLING on 02/25/211014 Last Action: Continued Formoterol Fumarate (Perforomist) 20 Mcg/2 Ml Vial.neb, 20 MCG IH BID, (Reported) Entered as Reported by: SANDY SCHILLING on 02/25/211014 Last Action: Converted Gemfibrozil (Gemfibrozil) 600 Mg Tablet, 600 MG PO BID WITH MEALS, (Reported) Entered as Reported by: ALETA TURNER on 04/23/17 0956 Last Action: Reviewed Glipizide (Glipizide ER) 5 Mg Tab.er.24, 5 MG PO DAILY, (Reported) Entered as Reported by: SANDY SCHILLING on 5/11/23 1553 Last Action: Continued Hydrocodone/Acetaminophen (Hydrocodone-Acetamin 5-325 mg) 5 Mg-325 Mg Tablet, 0.5 EA PO BID, (Reported) Entered as Reported by: SANDY SCHILLING on 02/25/21 1015 Last Action: Continued Latanoprost (Xalatan) 2.5 Ml Drops, 1 DROP OU DAILY, (Reported) Entered as Reported by: SANDY SCHILLING on 02/25/21 1015 Last Action: Continued Metoprolol Tartrate (Metoprolol Tartrate) 100 Mg Tablet, 50 MG PO 1700, (Reported) Entered as Reported by: SANDY SCHILLING on 01/21/231552 Last Action: Converted Metoprolol Tartrate (Metoprolol Tartrate) 100 Mg Tablet, 100 MG PO DAILY, (Reported) Entered as Reported by: SANDY SCHILLING on 01/21/231552 Last Action: Converted Montelukast Sodium (Singulair) 10 Mg Tablet, 10 MG PO 1700, (Reported) Entered as Reported by: MARGARITA LIRA on 08/18/16 1318 Last Action: Continued [place]-3 Fatty Acids ([place]-3) 1,000 Mg Capsule, 2,000 MG PO DAILY, (Reported) Entered as Reported by: SANDY SCHILLING on 01/21/231552 Last Action: Held [place]-3 Fatty Acids ([place]-3) 1,000 Mg Capsule, 1,000 MG PO HS, (Reported) Entered as Reported by: SANDY SCHILLING on 01/21/231552 Last Action: Held Pantoprazole Sodium (Pantoprazole Sodium) 40 Mg Tablet.dr, 40 MG PO 1700, (Reported) Entered as Reported by: MARGARITA LIRA on 08/18/16 1317 Last Action: Continued Revefenacin (Yupelri) 175 Mcg/3 Ml Vial.neb, 175 MCG IH 1200, (Reported) Entered as Reported by: SANDY SCHILLING on 02/25/21 1015 Last Action: Held Torsemide (Torsemide) 10 Mg Tablet, 10 MG PO DAILY, (Reported) Entered as Reported by: SANDY SCHILLING on 01/21/231552 Last Action: Continued [Biest(50/50)/T] 0.5/0.5/1 CREAM.APPL, 0.5 ML TOP DAILY, (Reported) Entered as Reported by: SANDY SCHILLING on 02/25/21 1031 Last Action: Held Discontinued Medications Albuterol Sulfate (Albuterol Sulfate) 2.5 Mg/0.5 Ml Vial.neb, 2.5 MG INH Q4H PRN for SHORTNESS OF BREATH, (Reported) Discontinued Reason: Duplicate Order Entered as Reported by: SANDY SCHILLING on 02/25/21 1015 Last Action: Discontinued Calcium/Magnesium/Zinc (Ztqducr-Zztdjusrq-Pzvr Tablet) 1 Each Tablet, 1 EACH PO BID, (Reported) Discontinued Reason: Prescription changed Entered as Reported by: SANDY SCHILLING on 02/25/21 1015 Last Action: Reviewed Carboxymethyl/Gly/Poly80/Pf (Refresh Optive Advanced Drops) 1 Each Droperette, 1 EACH OU PRN PRN for DRY EYES, (Reported) Discontinued Reason: Duplicate Order Entered as Reported by: SANDY SCHILLING on 02/25/21 1015 Last Action: Discontinued Cetirizine HCl (Cetirizine HCl) 10 Mg Tablet, 10 MG PO DAILY, (Reported) Discontinued Reason: No Longer Taking Entered as Reported by: SANDY SCHILLING on 02/25/21 1015 Last Action: Discontinued Clopidogrel Bisulfate (Plavix) 75 Mg Tablet, 75 MG PO Q48H, (Reported) Discontinued Reason: Duplicate Order Entered as Reported by: MARGARITA LIRA on 08/18/168 Last Action: Discontinued Doxycycline Monohydrate (Doxycycline Monohydrate) 100 Mg Tablet, 100 MG PO BID Discontinued Reason: No Longer Taking Prescribed by: JACOB MEDELLIN on 04/30/22 1500 Last Action: Discontinued Glipizide (Glipizide Xl) 2.5 Mg Tab.er.24, 2.5 MG PO DAILY, (Reported) Discontinued Reason: No Longer Taking Entered as Reported by: MARGARITA LIRA on 08/18/16 1318 Last Action: Discontinued Metoprolol Tartrate (Metoprolol Tartrate) 50 Mg Tablet, 50 MG PO BID, (Reported) Discontinued Reason: Prescription changed Entered as Reported by: SANDY SCHILLING on 02/25/21 1015 Montelukast Sodium (Montelukast Sodium) 10 Mg Tablet, 10 MG PO HS, (Reported) Discontinued Reason: Duplicate Order Entered as Reported by: SANDY SCHILLING on 01/21/23 1553 Last Action: Discontinued Nitroglycerin (Nitroglycerin) 0.4 Mg Tab.subl, 0.4 MG SL UD PRN for CHEST PAIN, (Reported) Discontinued Reason: No Longer Taking Entered as Reported by: SANDY SCHILLING on 02/25/21 1015 Last Action: Discontinued [place]-3/Dha/Epa/Fish Oil (Fish Oil 1,000 mg Softgel) 1 Each Capsule, 2 EACH PO BID, (Reported) Discontinued Reason: Duplicate Order Entered as Reported by: SANDY SCHILLING on 02/25/21 1015 Last Action: Discontinued Vit C/E/Zn/Coppr/Lutein/Zeaxan (Preservision Areds 2 Softgel) 1 Each Capsule, 1 EACH PO BID, (Reported) Discontinued Reason: No Longer Taking Entered as Reported by: SANDY SCHILLING on 02/25/21 1015 Last Action: Discontinued [Progesterone] 200 MINOR, 50 MG PO MO,,,,FR,SA, (Reported) Discontinued Reason: No Longer Taking Entered as Reported by: SANDY SCHILLING on 02/25/21 1015 Last Action: Discontinued Past Ifvavpz-Aapphp-Rlyaxs Hx Patient Social History Marrital Status: Living Status: lives with spouse in [place] Employed/Student: retired Tobacco Use?: No Use of E-Cig and/or Vaping dev: No Substance use?: No Alcohol Use?: No Pt feels they are or have been: No Immunizations Up To Date Date of Influenza Vaccine: Nov 20, 2020 First/Initial COVID19 Vaccinat: NOT VACCINATED Tetanus Booster (TDap): Unknown Date of Pneumonia Vaccine: Oct 14, 2015 Seasonal Allergies Seasonal Allergies: Yes Current Status Advance Directives: No Advance Directive Location: Home Communicates: Verbally Primary Language: Algerian Preferred Spoken Language: Algerian Is interpretation needed?: No Sensory deficits: Vision impairment Implanted or Applied Medical D: CPAP, Stents Past Medical History Surgeries: Eye Surgery, Hysterectomy Asthma, Sleep Apnea, COPD, Emphysema Currently Using CPAP: Yes Hypertension Neuropathy [employer] History: Hysterectomy Gastroesophageal Reflux Arthritis, Chronic Back Pain Blood Disorders: No Family Medical History Reviewed Nursing Family Hx No Pertinent Family Hx Review of Systems Constitutional: No chills; diaphoresis; No dizziness; fever, malaise, weakness EENTM: hearing loss; No dental problems, No throat pain, No throat swelling Respiratory: cough, dyspnea on exertion, short of breath; No wheezing Gastrointestinal: No abdominal pain, No constipation, No diarrhea, No nausea, No vomiting Genitourinary: No dysuria, No frequency Musculoskeletal: no symptoms reported Skin: no symptoms reported Psychiatric/Neurological: Denies Anxiety, Denies Depressed, Denies Weakness All Other Systems Reviewed Negative Unless Noted: Yes Physical Exam Vital Signs Vital Signs - First Documented 01/21/23 15:08 FiO2 21 Capillary Refill : Less Than 3 Seconds Height, Weight, BMI Height: 5'6.00" Weight: 220lbs. 0.0oz. [id number]; 37.55 BMI Method:Actual General Appearance: WD/WN, Mild Distress (due to shortness of breath) HEENT: PERRL/EOMI, TMs Normal, Normal ENT Inspection, Pharynx Normal Neck: Full Range of Motion, Supple Respiratory: Chest Non Tender, Decreased Breath Sounds (in bases), Wheezing Cardiovascular: Regular Rate, Rhythm, No Edema, Normal Peripheral Pulses Gastrointestinal: Normal Bowel Sounds, No Organomegaly, No Pulsatile Mass, Non Tender, Soft Rectal: Deferred Back: Normal Inspection, No CVA Tenderness Extremity: Normal Capillary Refill, No Calf Tenderness, No Pedal Edema Neurologic/Psychiatric: Alert, Oriented x3, No Motor/Sensory Deficits, Normal Mood/Affect; No Aphasia, No Disoriented, No Facial Droop, No Motor Weakness Skin: Normal Color, Warm/Dry Lymphatic: No Adenopathy Assessment/Plan Assessment and Plan Covid pneumonia Hypoxemia Dyspnea on Exertion Weakness Hypertension Chronic COPD with Emphysema GERD Covid pneumonia with Hypoxemia and Dyspnea on Exertion - underlying Chronic COPD with Emphysema - pt on dexamethasone, cannot start on antivirals due to contraindications/drug interactions. - pt appears stable on oxygen at this time with inhalers, continue with supportive care, hydration and monitor symptoms Weakness - should improve with hydration Hypertension - extra dose of metoprolol today, monitor pressures on home regimen, may need additional medication pending her response to the medications. GERD - resume ppi therapy. dvt prophylaxis with scd's and lovenox gi prohylaxis with ppi therapy Admission Diagnosis Covid pneumonia Hypoxemia Dyspnea on Exertion Weakness Hypertension Chronic COPD with Emphysema GERD Admission Status: Inpatient Order (span 2 midnights) Reason for Inpatient Admission: inpatient admission for covid pneumonia with hypoxemia - will require at least 48 hours in the hospital for stabilization DANITA DEL CASTILLO MD January 21, 2023 17:37
[2023-01-21] MEDS ORDERED: NON-FORMULARY MEDICATION 1 EA EA (Carboxymethylcellulose Sodium (Refresh Tears) 2 DROPS) OU PRN (17:45)
[2023-01-21] MEDS ORDERED: ARTIFICAL TEARS 0.4 ML UNIT DOSE (REFRESH PLUS) OU PRN (18:15)
[2023-01-21] MEDS: PANTOPRAZOLE 40 MG (PROTONIX) TAB PO SCH (18:21)
[2023-01-21] MEDS: MONTELUKAST 10 MG (SINGULAIR) TAB PO SCH (18:21)
[2023-01-21] MEDS: ACETAMINOPHEN ER 650 MG (TYLENOL ARTHRITIS) PO SCH (18:21)
[2023-01-21] MEDS: DULoxetine 30 MG (CYMBALTA) CAP PO SCH (18:21)
[2023-01-21] MEDS: CLOPIDOGREL 75 MG (PLAVIX) TABLET PO SCH (18:21)
[2023-01-21 20:07] VITALS: BP 173/74
[2023-01-21] MEDS ORDERED: ACETYLCYSTEINE 600 MG PO SCH (21:00)
[2023-01-21] MEDS ORDERED: NON-FORMULARY MEDICATION 1 EA EA (Formoterol Fumarate (Perforomist) 20 MCG) IH SCH (21:00)
[2023-01-21] MEDS: HYDROcodone/APAP 5 MG/325 MG (LORTAB) TAB PO SCH (21:06)
[2023-01-21] MEDS: CATHETER FLUSH 10 ML SYR IV SCH (21:08)
[2023-01-21] MEDS: RT-ALBUTEROL HFA 8.5 GM INHALER IH SCH (21:56)
[2023-01-21] MEDS: RT-BUDESONIDE NEBS 0.5 MG/2ML (PULMICORT) AMP INH SCH (22:30)
[2023-01-21] MEDS: aCETylcysteine 20% (MUCOMYST) 4 ML SOLN VIAL PO SCH (22:31)
[2023-01-22] VITALS (8 sets, daily range): BP systolic 133–178; BP diastolic 57–74
[2023-01-22] MEDS: ACETAMINOPHEN ER 650 MG (TYLENOL ARTHRITIS) PO SCH ×4 (00:15→16:49)
[2023-01-22] MEDS: RT-ALBUTEROL HFA 8.5 GM INHALER IH SCH ×4 (02:55→19:38)
[2023-01-22 05:37] LABS: BASOPHILS % (AUTO) 0 % (0-10); EOSINOPHILS % (AUTO) 0 % (0-10); HEMATOCRIT 37 % (35-52); HEMOGLOBIN 12.4 g/dL (11.5-16.0); LYMPHOCYTES % (AUTO) 14 % (12-44); MEAN CORPUSCULAR HEMOGLOBIN 31 pg (25-34); MEAN CORPUSCULAR HGB CONC 34 g/dL (32-36); MEAN CORPUSCULAR VOLUME 93 fL (80-99); MEAN PLATELET VOLUME 9.7 fL (9.0-12.2); MONOCYTES % (AUTO) 14 % (0-12); NEUTROPHILS # (AUTO) 5.1 10^3/uL (1.8-7.8); NEUTROPHILS % (AUTO) 72 % (42-75); PLATELET COUNT 235 10^3/uL (130-400); WHITE BLOOD COUNT 7.2 10^3/uL (4.3-11.0)
[2023-01-22 05:54] LABS: CREATININE SERUM 0.88 MG/DL (0.60-1.30); POTASSIUM 4.2 MMOL/L (3.6-5.0)
[2023-01-22] MEDS: CATHETER FLUSH 10 ML SYR IV SCH ×3 (06:47→19:33)
[2023-01-22] MEDS: glipiZIDE XL 5 MG (GLUCOTROL XL) TAB PO SCH (06:47)
[2023-01-22] MEDS: inSUlin ASPART (NovoLOG) 1 UNIT/0.01 ML (CHARGE PER UNIT) SC SCH ×4 (06:48→20:12)
[2023-01-22] MEDS: TORSEMIDE 10 MG (DEMADEX) TABLET PO SCH (08:43)
[2023-01-22] MEDS: meTOprolol TARTRATE 50 MG (LOPRESSOR) TAB PO SCH ×2 (08:43→16:49)
[2023-01-22] MEDS: HYDROcodone/APAP 5 MG/325 MG (LORTAB) TAB PO SCH ×2 (08:44→19:32)
[2023-01-22] MEDS ORDERED: dexAMETHasone 6 MG TAB (DECADRON) PO SCH (09:00)
[2023-01-22] MEDS ORDERED: NON-FORMULARY MEDICATION 1 EA EA (Metoprolol Tartrate 100 MG) PO SCH (09:00)
[2023-01-22] MEDS: aCETylcysteine 20% (MUCOMYST) 4 ML SOLN VIAL PO SCH (10:13)
[2023-01-22] MEDS: RT-BUDESONIDE NEBS 0.5 MG/2ML (PULMICORT) AMP INH SCH (10:13)
[2023-01-22] MEDS ORDERED: CALC-140 PO (12:06)
--- NOTE | 2023-01-22 12:13 | Progress Note ---
Subjective Subjective Date Seen by Provider: January 22, 2023 Time Seen by Provider: 11:15 Pt reports feeling much better she reports a fever yesterday and again today that seemed to break with tylenol. she reports palpitations after steroids and breathing treatments today. Review of Systems General: No Chills; Fatigue; No Malaise HEENT: No Head Aches Pulmonary: No Dyspnea; Cough Cardiovascular: No: Chest Pain, Palpitations Gastrointestinal: No: Nausea, Abdominal Pain Genitourinary: No Dysuria Neurological: No: Weakness Objective Exam Vital Signs Vital Signs Date Time Temp Pulse Resp B/P (MAP) Pulse Ox O2 Delivery O2 Flow Rate FiO2 01/22/23 11:00 35.9 73 20 178/74 (108) 91 Nasal Cannula 2.00 01/22/23 10:14 94 Nasal Cannula 2.00 01/22/23 08:08 36.3 75 20 160/70 (100) 92 Room Air 01/22/23 08:00 91 Nasal Cannula 2.00 01/22/23 03:06 36.5 88 16 133/57 (82) 95 Nasal Cannula 3.00 01/22/23 03:00 94 Nasal Cannula 2.00 01/22/23 00:10 37.0 82 16 143/65 (91) 92 Nasal Cannula 2.00 01/21/23 21:56 93 Nasal Cannula 2.00 01/21/23 20:07 36.5 83 24 173/74 (107) 93 Nasal Cannula 2.00 01/21/23 16:09 92 Nasal Cannula 2.00 01/21/23 15:08 37.1 75 88 21 01/21/23 14:04 37.6 86 20 176/74 (108) 93 01/21/23 14:04 82 18 135/60 94 Room Air 2.00 I & O 01/22/23 07:00 Intake Total 1340 ml Output Total 600 ml Balance 740 ml General Appearance: No Apparent Distress, WD/WN HEENT: PERRL/EOMI, Pharyngeal Erythema Neck: Non Tender, Supple Respiratory: Lungs Clear, Normal Breath Sounds Cardiovascular: Regular Rate, Rhythm, No Murmur Gastrointestinal: Non Tender, Soft Back: Normal Inspection, No CVA Tenderness, No Vertebral Tenderness Extremity: Normal Range of Motion, Non Tender Neurologic/Psychiatric: Alert, Oriented x3 Skin: Normal Color, Warm/Dry Results Lab Laboratory Tests 01/21/23 15:26: Glucometer 195H 01/21/23 20:02: Glucometer 278H 01/22/23 05:25: White Blood Count 7.2, Red Blood Count 3.95, Hemoglobin 12.4, Hematocrit 37, Mean Corpuscular Volume 93, Mean Corpuscular Hemoglobin 31, Mean Corpuscular Hemoglobin Concent 34, Red Cell Distribution Width 13.1, Platelet Count 235, Mean Platelet Volume 9.7, Immature Granulocyte % (Auto) 1, Neutrophils (%) (Auto) 72, Lymphocytes (%) (Auto) 14, Monocytes (%) (Auto) 14H, Eosinophils (%) (Auto) 0, Basophils (%) (Auto) 0, Neutrophils # (Auto) 5.1, Lymphocytes # (Auto) 1.0, Monocytes # (Auto) 1.0, Eosinophils # (Auto) 0.0, Basophils # (Auto) 0.0, Immature Granulocyte # (Auto) 0.0, Sodium Level 129L, Potassium Level 4.2, Chloride Level 95L, Carbon Dioxide Level 21, Anion Gap 13, Blood Urea Nitrogen 21H, Creatinine 0.88, Estimat Glomerular Filtration Rate 66, BUN/Creatinine Ratio 24, Glucose Level 240H, Calcium Level 9.0 01/22/23 05:57: Glucometer 244H Microbiology 01/21/23 Urine Culture - Final, Complete Gram Pos Mixed Bacterial Arlin See Comments Assessment/Plan Assessment/Plan Assessment and Plan Covid pneumonia Hypoxemia Dyspnea on Exertion Weakness Hypertension Chronic COPD with Emphysema GERD Covid pneumonia with Hypoxemia and Dyspnea on Exertion - underlying Chronic COPD with Emphysema - pt on dexamethasone, cannot start on antivirals due to contraindications/drug interactions. - decrease dose of dexamethasone to 2mg tomorrow - pt appears stable on oxygen at this time with inhalers, continue with supportive care, hydration and monitor symptoms Weakness - should improve with hydration Hypertension - extra dose of metoprolol yesterday with persistently elevated blood pressure, will give hydralazine this morning for bp and increase toprol to 100mg bid. continue to monitor pressures, may need additional medication pending her response to the medications. GERD - resumed ppi therapy. dvt prophylaxis with scd's and lovenox gi prohylaxis with ppi therapy DANITA PALOMO MD January 22, 2023 12:13
[2023-01-22] MEDS: PANTOPRAZOLE 40 MG (PROTONIX) TAB PO SCH (16:49)
[2023-01-22] MEDS: ASPIRIN E.C. 81 MG (ECOTRIN) TAB PO SCH (16:49)
[2023-01-22] MEDS: MONTELUKAST 10 MG (SINGULAIR) TAB PO SCH (16:49)
[2023-01-22] MEDS ORDERED: meTOprolol TARTRATE 50 MG (LOPRESSOR) TAB PO SCH (17:00)
[2023-01-22] MEDS ORDERED: NON-FORMULARY MEDICATION 1 EA EA (Metoprolol Tartrate 50 MG) PO SCH (17:00)
[2023-01-22] MEDS: LATANOPROST 0.005% (XALATAN) OPHTH SOLN 2.5 ML OU SCH (19:32)
[2023-01-23] MEDS: ACETAMINOPHEN ER 650 MG (TYLENOL ARTHRITIS) PO SCH ×4 (00:19→17:02)
[2023-01-23] MEDS: RT-ALBUTEROL HFA 8.5 GM INHALER IH SCH ×4 (03:05→20:11)
[2023-01-23] MEDS: CATHETER FLUSH 10 ML SYR IV SCH ×3 (05:32→19:28)
[2023-01-23] MEDS: inSUlin ASPART (NovoLOG) 1 UNIT/0.01 ML (CHARGE PER UNIT) SC SCH ×4 (05:36→21:22)
[2023-01-23] MEDS: glipiZIDE XL 5 MG (GLUCOTROL XL) TAB PO SCH (05:36)
[2023-01-23 08:16] VITALS: BP 190/77
[2023-01-23] MEDS: TORSEMIDE 10 MG (DEMADEX) TABLET PO SCH (09:13)
[2023-01-23] MEDS: HYDROcodone/APAP 5 MG/325 MG (LORTAB) TAB PO SCH ×2 (09:13→19:28)
[2023-01-23] MEDS: meTOprolol TARTRATE 50 MG (LOPRESSOR) TAB PO SCH ×2 (09:13→17:01)
[2023-01-23 15:15] VITALS: BP 133/55
[2023-01-23] MEDS ORDERED: hydrALAZINE (APESOLINE) 20 MG/ML VIAL IV PRN (15:30)
--- NOTE | 2023-01-23 15:32 | Progress Note - Hospitalist ---
Subjective HPI/CC On Admission Date Seen by Provider: January 23, 2023 Time Seen by Provider: 11:25 Subjective/Events-last exam She is feeling weak. She did not sleep well. She has a cough. She feels short of breath. Focused Exam Lactate Level 01/21/23 09:50: Lactic Acid Level 1.54 Objective Exam Vital Signs Vital Signs Date Time Temp Pulse Resp B/P (MAP) Pulse Ox O2 Delivery O2 Flow Rate FiO2 01/23/23 15:15 36.5 69 18 133/55 (81) 92 Nasal Cannula 2.00 01/21/23 15:08 21 Capillary Refill : Less Than 3 Seconds General Appearance: No Apparent Distress, Obese Respiratory: Lungs Clear, No Respiratory Distress Cardiovascular: Regular Rate, Rhythm, No Murmur Gastrointestinal: Normal Bowel Sounds, Soft Extremity: Normal Inspection, No Pedal Edema Neurologic/Psychiatric: Alert, Normal Mood/Affect Results/Procedures Lab Patient resulted labs reviewed. Assessment/Plan Assessment and Plan Assess & Plan/Chief Complaint Acute respiratory failure with hypoxia COVID-19 COPD HTN T2DM GERD Obesity Decadron MAT protocol Supplemental oxygen as needed Diagnosis/Problems Diagnosis/Problems (1) Acute respiratory failure with hypoxia (2) COVID-19 (3) COPD (chronic obstructive pulmonary disease) (4) HTN (hypertension) (5) T2DM (type 2 diabetes mellitus) (6) GERD (gastroesophageal reflux disease) (7) Obesity LONG WELCH MD January 23, 2023 15:32
[2023-01-23] MEDS: MONTELUKAST 10 MG (SINGULAIR) TAB PO SCH (17:01)
[2023-01-23] MEDS: PANTOPRAZOLE 40 MG (PROTONIX) TAB PO SCH (17:01)
[2023-01-23] MEDS: ASPIRIN E.C. 81 MG (ECOTRIN) TAB PO SCH (17:01)
[2023-01-23] MEDS: DULoxetine 30 MG (CYMBALTA) CAP PO SCH (17:05)
[2023-01-23] MEDS: CLOPIDOGREL 75 MG (PLAVIX) TABLET PO SCH (17:05)
[2023-01-23] MEDS: LATANOPROST 0.005% (XALATAN) OPHTH SOLN 2.5 ML OU SCH (19:28)
[2023-01-23] MEDS: guaiFENesin/DM (ROBITUSSIN DM) 10 ML UDC PO PRN (19:36)
[2023-01-24 00:15] VITALS: BP 172/76
[2023-01-24] MEDS: ACETAMINOPHEN ER 650 MG (TYLENOL ARTHRITIS) PO SCH ×3 (00:15→11:31)
[2023-01-24] MEDS: RT-ALBUTEROL HFA 8.5 GM INHALER IH SCH ×2 (02:20→08:12)
[2023-01-24] MEDS: inSUlin ASPART (NovoLOG) 1 UNIT/0.01 ML (CHARGE PER UNIT) SC SCH ×2 (05:25→10:55)
[2023-01-24] MEDS: glipiZIDE XL 5 MG (GLUCOTROL XL) TAB PO SCH (05:35)
[2023-01-24] MEDS: CATHETER FLUSH 10 ML SYR IV SCH (05:35)
[2023-01-24 06:12] LABS: CALCIUM 9.1 MG/DL (8.5-10.1); CREATININE SERUM 0.77 MG/DL (0.60-1.30); POTASSIUM 4.8 MMOL/L (3.6-5.0)
[2023-01-24 07:46] VITALS: BP 164/72
[2023-01-24] MEDS: HYDROcodone/APAP 5 MG/325 MG (LORTAB) TAB PO SCH (08:26)
[2023-01-24] MEDS: meTOprolol TARTRATE 50 MG (LOPRESSOR) TAB PO SCH (08:26)
[2023-01-24] MEDS: TORSEMIDE 10 MG (DEMADEX) TABLET PO SCH (08:26)
[2023-01-24] MEDS: guaiFENesin/DM (ROBITUSSIN DM) 10 ML UDC PO PRN (11:31)
[2023-01-24] MEDS ORDERED: METO100T12 PO (11:54)
[2023-01-24 13:00] VITALS: BP 164/72
--- NOTE | 2023-01-24 17:23 | Discharge Summary ---
Discharge Summary Hospital Course Problems/Dx: (1) Acute respiratory failure with hypoxia (2) COVID-19 (3) COPD (chronic obstructive pulmonary disease) (4) HTN (hypertension) (5) T2DM (type 2 diabetes mellitus) (6) GERD (gastroesophageal reflux disease) (7) Obesity Hospital Course Date of Admission: January 21, 2023 at 13:56 Admission Diagnosis : Acute respiratory failure due to COVID-19 Family Physician/Provider: Danita Del Castillo MD Date of Discharge: 01/24/23 Discharge Diagnosis: Acute respiratory failure due to COVID-19 Hospital Course: Jennifer Jeronimo is an 82 year old female who was admitted with acute respiratory failure due to COVID-19. She was treated with steroids and breathing treatments. Her symptoms improved after a couple days of treatment. She also had issues with weakness which also improved. Her oxygen requirement resolved prior to discharge. She also had acute on chronic hypertension, possibly related to steroid use. Her metoprolol dose was slightly increased. She has a follow up scheduled with Dr. Del Castillo in two weeks. She was discharged home in stable condition. Labs and Pending Lab Test: Laboratory Tests 01/23/23 20:36: Glucometer 228H 01/24/23 05:22: Glucometer 112H 01/24/23 05:27: Sodium Level 129L, Potassium Level 4.8, Chloride Level 92L, Carbon Dioxide Level 26, Anion Gap 11, Blood Urea Nitrogen 23H, Creatinine 0.77, Estimat Glomerular Filtration Rate 77, BUN/Creatinine Ratio 30, Glucose Level 113H, Calcium Level 9.1 01/24/23 10:51: Glucometer 156H Microbiology 01/21/23 Urine Culture - Final, Complete Gram Pos Mixed Bacterial Arlin See Comments 01/21/23 Blood Culture - Preliminary, Resulted No growth Home Meds Active Metoprolol Tartrate 100 Mg Tablet 100 Mg PO BID 30 Days Reported Calcium + Vitamin D Tablet (Calcium Carbonate/Vitamin D3) 600 Mg Calcium-5 Mcg (200 Unit) Tablet 1 Each PO BID Budesonide 0.5 Mg/2 Ml Ampul.neb 0.5 Ml NEB BID Albuterol Sulfate 2.5 Mg/3 Ml (0.083 %) Vial.neb 2.5 Mg NEB Q6H PRN Refresh Tears (Carboxymethylcellulose Sodium) 0.5 % Drops 1-2 Drops OU Q4H PRN [place]-3 ([place]-3 Fatty Acids) 1,000 Mg Capsule 1,000 Mg PO HS [place]-3 ([place]clair-3 Fatty Acids) 1,000 Mg Capsule 2,000 Mg PO DAILY Clopidogrel (Clopidogrel Bisulfate) 75 Mg Tablet 75 Mg PO Q48H Torsemide 10 Mg Tablet 10 Mg PO DAILY Glipizide ER (Glipizide) 5 Mg Tab.er.24 5 Mg PO DAILY [Biest(50/50)/T] 0.5/0.5/1 Cream.appl 0.5 Ml TOP DAILY Ventolin Hfa (Albuterol Sulfate) 1 Puff Puff 2 Puff IH Q4H PRN Yupelri (Revefenacin) 175 Mcg/3 Ml Vial.neb 175 Mcg IH 1200 Perforomist (Formoterol Fumarate) 20 Mcg/2 Ml Vial.neb 20 Mcg IH BID Aspirin EC (Aspirin) 81 Mg Tablet.dr 81 Mg PO 1700 Nac (Acetylcysteine) 600 Mg Capsule 600 Mg PO BID Xalatan (Latanoprost) 2.5 Ml Drops 1 Drop OU DAILY Hydrocodone-Acetamin 5-325 mg (Hydrocodone/Acetaminophen) 5 Mg-325 Mg Tablet 0.5 Ea PO BID Duloxetine HCl 30 Mg Capsule.dr 30 Mg PO Q48H Gemfibrozil 600 Mg Tablet 600 Mg PO BID WITH MEALS Singulair (Montelukast Sodium) 10 Mg Tablet 10 Mg PO 1700 Pantoprazole Sodium 40 Mg Tablet.dr 40 Mg PO 1700 Assessment/Pt Instructions See instructions Discharge Planning: >30 minutes discharge planning Discharge Instructions Discharge Diet: Low Sodium Diet, ADA Diet Activity as Tolerated: Yes Discharge Physical Examination Vital Signs Vital Signs Date Time Temp Pulse Resp B/P (MAP) Pulse Ox O2 Delivery O2 Flow Rate FiO2 01/24/23 13:00 36.3 64 18 164/72 94 Nasal Cannula 2.00 01/21/23 15:08 21 General Appearance: No Apparent Distress, Obese Respiratory: Lungs Clear, No Respiratory Distress Cardiovascular: Regular Rate, Rhythm, No Murmur Gastrointestinal: Normal Bowel Sounds, Soft Extremity: Normal Inspection, No Pedal Edema Skin: Normal Color, Warm/Dry Neurologic/Psychiatric: Alert, Normal Mood/Affect Allergies: Coded Allergies: cephaeline (Verified Allergy, Mild, 01/21/23) turmeric (Verified Allergy, Mild, 5/11/23) Sulfa (Sulfonamide Antibiotics) (Verified Allergy, Unknown, 01/21/23) ampicillin (Verified Allergy, Unknown, 01/21/23) aspirin (Verified Allergy, Unknown, 01/21/23) gentamicin (Verified Allergy, Unknown, 01/21/23) hydrogen peroxide (Verified Allergy, Unknown, 01/21/23) moxifloxacin (Verified Allergy, Unknown, 01/21/23) Uncoded Allergies: PAUD'ARCO (Allergy, Unknown, 04/19/16) Copy Copies To 1: DANITA DEL CASTILLO MD Discharge Summary Date of Admission January 21, 2023 at 13:56 Date of Discharge January 24, 2023 at 13:00 Discharge Date: January 24, 2023 Discharge Time: 13:00 Admission Diagnosis Acute respiratory failure due to COVID-19 Discharge Diagnosis Acute respiratory failure with hypoxia COVID-19 COPD HTN T2DM GERD Obesity (1) Acute respiratory failure with hypoxia (2) COVID-19 (3) COPD (chronic obstructive pulmonary disease) (4) HTN (hypertension) (5) T2DM (type 2 diabetes mellitus) (6) GERD (gastroesophageal reflux disease) (7) Obesity LONG WELCH MD January 24, 2023 17:23
== END 2023-01-24 13:00 | disposition home or self-care (01) | DRG 177 ==
LOC: EDUNIT# 09:26 → ER 09:28 → 4TH 13:56
PROVIDERS: ADMIT Family Medicine; ATTEND Internal Medicine
PROC: 5A09357 Assistance with Respiratory Ventilation, Less than 24 Consecutive Hours, Continuous Positive Airway Pressure (ICD-10-PCS; principal; 2023-01-23)
DX: U07.1 COVID-19 (principal); J12.82 Pneumonia due to coronavirus disease 2019; J96.01 Acute respiratory failure with hypoxia; J43.9 Emphysema, unspecified; I10 Essential (primary) hypertension; E11.40 Type 2 diabetes mellitus with diabetic neuropathy, unspecified; K21.9 Gastro-esophageal reflux disease without esophagitis; E66.9 Obesity, unspecified; Z66 Do not resuscitate; Z68.37 Body mass index [BMI] 37.0-37.9, adult; H54.7 Unspecified visual loss; Z79.84 Long term (current) use of oral hypoglycemic drugs; Z95.5 Presence of coronary angioplasty implant and graft; Z28.310 Unvaccinated for COVID-19; Z28.29 Immunization not carried out because of patient decision for other reason; Z79.899 Other long term (current) drug therapy; Z79.82 Long term (current) use of aspirin; Z79.02 Long term (current) use of antithrombotics/antiplatelets; Z88.6 Allergy status to analgesic agent; Z88.1 Allergy status to other antibiotic agents; Z88.2 Allergy status to sulfonamides; Z91.09 Other allergy status, other than to drugs and biological substances
CPT/HCPCS: 36415; 71045; 80048; 80053; 81000; 82947; 83605; 85025; 85610; 85730; 87040; 87088; 87636; 94640; 94664; 94760

== ENCOUNTER → 2023-03-17 | Outpatient (CLI) | payer MEDICARE, OTHER ==
[~2023-03-17] MED LIST changes: +ALBU2.5V4 NEB; +BUDE0.5A NEB; +CALC-140 PO; +CARB15DR OU; +CLOP75TA28 PO; +GLIP5TAB26 PO; +METO100T12 PO; +MONT-40 PO; +OMEG10005 PO; +TORS10TA5 PO
--- NOTE | 2023-03-17 15:56 | Diagnostic Imaging Report ---
INDICATION: Right knee pain. COMPARISON: None available. TECHNIQUE: Three radiographs of the right knee dated 03/17/2023. FINDINGS: No acute fracture or dislocation. No destructive osseous process. Moderate medial joint space narrowing with moderate osteophyte formation and sclerosis of the articular surfaces. Minimal lateral joint space narrowing with minimal osteophyte formation. Chondrocalcinosis of the medial and lateral menisci. No knee joint effusion. Small superior patellar enthesophytes. Moderate background vascular calcifications. No suspicious radiopaque foreign body. IMPRESSION: No acute osseous abnormality with moderate degenerative changes present, by far greatest within the medial compartment. Chondrocalcinosis of the menisci which may relate to CPPD deposition disease though can also simply relate to underlying osteoarthritis. Moderate background vascular calcifications. Dictated by: Dictated on workstation # [id number]
== END ==
LOC: RAD 14:56
PROVIDERS: ATTEND Nurse Practitioner Family
DX: M11.261 Other chondrocalcinosis, right knee (principal); M17.11 Unilateral primary osteoarthritis, right knee
CPT/HCPCS: 73562

== ENCOUNTER → 2023-04-12 | Outpatient (RCR) | payer MEDICARE, OTHER | END | disposition home or self-care (01) | PROVIDERS: ATTEND Family Medicine | DX: M17.11 Unilateral primary osteoarthritis, right knee (principal); M54.50 Low back pain, unspecified; G89.29 Other chronic pain ==

== ENCOUNTER 2023-05-11 10:51 | Outpatient (RCR) | payer MEDICARE, OTHER | END 2023-05-13 | disposition home or self-care (01) | PROVIDERS: ATTEND Family Medicine | DX: M17.11 Unilateral primary osteoarthritis, right knee (principal); M54.50 Low back pain, unspecified; G89.29 Other chronic pain ==

== ENCOUNTER 2023-05-20 10:17 | Outpatient (RCR) | payer MEDICARE, OTHER | END 2023-05-20 10:55 | disposition home or self-care (01) | PROVIDERS: ATTEND Family Medicine | DX: M54.50 Low back pain, unspecified (principal); G89.29 Other chronic pain; M17.11 Unilateral primary osteoarthritis, right knee ==

== ENCOUNTER → 2023-07-27 | Outpatient (CLI) | payer MEDICARE, OTHER ==
--- NOTE | 2023-07-27 14:40 | Diagnostic Imaging Report ---
EXAMINATION: Chest 2 view HISTORY: COPD. COMPARISON: 01/21/2023 FINDINGS: There is mild left base atelectasis. Otherwise, the lungs are clear without edema or pneumonia. No pleural effusion or pneumothorax. Heart size is normal. IMPRESSION: 1. Mild atelectasis, otherwise clear lungs. Dictated by: Dictated on workstation # [id number]
== END ==
LOC: RAD 14:10
PROVIDERS: ATTEND Nurse Practitioner Family
DX: J98.11 Atelectasis (principal)
CPT/HCPCS: 71046